=== PATIENT | female | born 1930 | race Caucasian/White ===

== ENCOUNTER 2016-11-09 09:02 | Inpatient (IN) | payer MEDICARE, OTHER ==
[2016-11-08 23:21] LABS: ASCORBIC ACID (UR NOT ORDER) 20 MG/DL (NEG); BILIRUBIN, URINE NEGATIVE (NEG); KETONE, URINE 5 MG/DL (NEG); LEUKOCYTE ESTERASE(NOT OR MOD (NEG); WBC (NOT ORDERED) (RFLEX) > 182 /[HPF] (0-5)
--- NOTE | ~2016-11-09 | HP ---
History And Physical [place] [id number] [place]. [address] NAME: ARACELIS PARIKH : 31 STATUS : ADM IN [facility]#: [id number] AGE: 85 ADM/REG DATE : 11/09/16 MR#: [id number] REPORT SERV DATE: 11/09/16 DICTATED BY: SONNY MCMANUS DATE: 11/09/16 REPORT STATUS : Draft TRANSCRIBED BY: MODL DATE: 11/09/16 DATE OF ADMISSION: 11/09/2016 IDENTIFYING DATA: An 85-year-old white female whose PCP is Dr. Zac Fan and urologist, Dr. Quezada. CHIEF COMPLAINT: Possible urinary tract infection. HISTORY OF PRESENT ILLNESS: This history of present illness is obtained by talking a little bit with the patient, but mostly with the son, Edgar, at the bedside as well as with the ER physician, Dr. Olsen, and reviewing [employer] and [employer]. This patient has paraplegia as is discussed in the past medical history below. As a complication of that, she ended up needing a suprapubic catheter and a colostomy to help with healing of stage IV decubitus she has had in the past. Unfortunately as part of her trouble with her suprapubic catheter, she has had many urinary tract infections, required inpatient hospitalization. Typically when these occur, she will become lethargic, confused, altered in her mental status, and sometimes hypotensive. Yesterday evening, she spiked a fever to 101, the caregiver called the son, Edgar. Home Health went out, they obtained a urine for culture and the son states they gave her a pill of Rocephin, but when I told him Rocephin is only a shot, he states it must have been some other antibiotic pill that the doctors had given them to give to her in case she had signs of infection. He does not know which one it was. Then, she had shaking chills, hallucinations, and lethargy. He states this is like her previous infections. Her baseline is where according to the son, she is alert, lucid, and clear thinking with good memory. REVIEW OF SYSTEMS: On review of systems, the patient is lethargic. She awakens to tactile stimulation. She states she has a mild cough and mild nausea. She had some complaint of abdominal pain, but could never show me where in her abdomen she felt pain. She was not sure if she had a headache. She denied sore throat, chest pain, or shortness of breath. She denied any bright red blood through the ostomy. They denied any melena, leg edema, rash, anorexia, or weight changes. ALLERGIES: NO KNOWN DRUG ALLERGIES. PAST MEDICAL HISTORY: No history of asthma, COPD, heart disease, stroke, seizure, peptic ulcer or biliary tract disease, liver disease, thyroid disease, cancer, or sleep apnea. In 2007, she reportedly was her usual self. She had nausea, vomiting, and suddenly was paralyzed from the mid spine down. Son states there was no trauma like car accident or anything else like this. 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 Apparently, surgery was done to try to restore her function, but she has been paraplegic ever since. She resulted in then neurogenic bladder, has had suprapubic catheter with many bladder infections, bladder stones, and renal stones, followed by Dr. Quezada. History And Physical [address] [address] NAME: ARACELIS PARIKH : 32 STATUS : ADM IN [facility]#: [id number] AGE: 85 ADM/REG DATE : 11/09/16 MR#: [id number] REPORT SERV DATE: 11/09/16 DICTATED BY: SONNY MCMANUS DATE: 11/09/16 REPORT STATUS : Draft TRANSCRIBED BY: FRANDY DATE: 11/09/16 She had the colostomy to help with wound healing. She at one point in time had a stage IV bedsore that the son states went all the way to her bone and her coccyx region and was the size of a fist. She has a history of diabetes mellitus type 2 and reflux. She also has a history of DVT. According to the son, it was only once as far as he knows. It is unclear why she still on anticoagulation this much later. She has an IVC filter in place. She has had kidney and bladder stones. HOME MEDICATIONS: Tylenol p.r.n.; vitamin C 500 mg daily; baclofen 10 mg t.i.d.; Tricor 48 mg daily; iron sulfate 325 mg twice a day; Levemir 40 units at bedtime; Humulin R sliding scale; magnesium oxide 400 mg daily; multivitamin once a day; omeprazole 20 mg daily; Zofran 4 mg q.8 hours p.r.n. nausea; Zocor 40 mg at bedtime; cranberry tablet once a day; Coumadin, she takes 2 mg on Saturday, Saturday, Saturday and 3 mg on Saturday, , Saturday, Saturday. PAST SURGICAL HISTORY: She has had hysterectomy, bilateral salpingo-oophorectomy, and bladder suprapubic catheter with replacement a few times according the son. She had the spine surgery in 2007. She has had a history of a left renal stone. She has had an IVC filter placed. SOCIAL HISTORY: No tobacco or alcohol intake history. 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 She lives at home now and has caregivers 04/03, they use a lift to get her to a wheelchair three or four times a week, and she can stay up in that wheelchair about two or three hours. FAMILY HISTORY: Her mother with old age. Father with brain cancer. Siblings, a brother with stroke and a sister with dementia. DIAGNOSTIC DATA: Chest x-ray done as a single portable film today in the emergency room reveals a shallow inspiratory size, which crowds all the lung markings. There was no clear cut infiltrate. No obvious bony abnormality. There is a slight deviation of the trachea to the right suggesting aortic knob calcification. EKG done today at 1007 hours and reviewed by me reveals normal sinus rhythm with some baseline motion artifact. There is Q-waves in III and aVF. No other abnormalities noted. Sodium 141, potassium 4, chloride 105, CO2 is 26, BUN 30, creatinine 1.09, glucose 216, and procalcitonin 8.35. The CMP is otherwise only remarkable for albumin of 3.1 and lactic acid is 2.0. White count is 12.4, hemoglobin is 10.4, and platelets are 193,000. Pro-time is 26.2, INR 2.4, and PTT is 50.7. Urinalysis done yesterday apparently by the home care nurse as a straight cath, turbid, protein 100, ketones 5, moderate leukocyte esterase, 38 red blood cells, greater than 182 white blood cells, many white blood cell clumps, and moderate bacteria. Today's urinalysis coming from her suprapubic catheter, turbid, protein 100, bilirubin small, urobilinogen 4, leukocyte esterase large, nitrite positive, greater than 182 red blood cells, greater than 182 white blood cells, many white blood cell clumps, and many bacteria. PHYSICAL EXAMINATION: VITAL SIGNS: Temp is 98; pulse 70; respirations 18; blood pressure initially 98/41, currently, it is up to 103/48; and O2 saturation 95% on room air. History And Physical [address] [address] NAME: ARACELIS PARIKH : 32 STATUS : ADM IN PAT#: [id number] AGE: 85 ADM/REG DATE : 11/09/16 MR#: [id number] REPORT SERV DATE: 11/09/16 DICTATED BY: SONNY MCMANUS DATE: 11/09/16 REPORT STATUS : Draft TRANSCRIBED BY: FRANDY DATE: 11/09/16 GENERAL: A well-developed older female who appears lethargic, but in no acute distress. HEENT: Head is atraumatic. Pupils are equal, round, and reactive to light. Extraocular motions are intact. No scleral icterus noted. Ear canals and TMs unremarkable. No inflammatory changes noted on the ears externally. Nose, noninflamed externally. Septum midline. Nares patent. Mouth is moist, good gag. No redness of the throat, gums, or lips. NECK: Supple. No lymph node or thyroid enlargement. The carotids have good pulses. No bruits. LUNGS: Clear. Good air flow. No wheezes. No rhonchi. Normal respiratory effort. HEART: Regular rate and rhythm without murmur, gallop, click, or rub. ABDOMEN: Bowel sounds positive. It is soft, except there is some firmness just to the left lateral side of the colostomy. There is a colostomy in the lower left midline. There is a suprapubic catheter that is a little bit left to midline. No mass. No rebound. No bruits. EXTREMITIES: Warm and good pulses. No clubbing. No cyanosis. No edema. She has plantar flexion of her feet bilaterally. She has superficial abrasion on the dorsum of the left foot, very small, maybe a centimeter across. No surrounding erythema. No other actively inflamed skin or joints. NEUROLOGIC: She is lethargic. She responds to tactile and verbal stimulation and opens her eyes, gives her name, is able to follow a few very simple commands, but without ongoing tactile stimulation, quickly falls back to a lethargic state. Motor strength is 1/5 in her hands. No movement of her legs noted. Cranial nerves II through XII are grossly normal. ASSESSMENT: 1. Fever at home 101, white count 12.4, lethargy with hallucinations, initial blood pressure 98/41, procalcitonin 8.35, pyuria, bacteria. This is all most consistent with recurrent severe complicated urinary tract infection with sepsis and an indwelling suprapubic catheter. 2. Acute kidney injury due to problem #1. 3. Metabolic encephalopathy. 4. Anemia of chronic disease. 5. History of renal and bladder stones in the past. 6. See past medical history. 7. Blood cultures and urine cultures have been sent. We are going to start Zosyn based on her previous sensitivities. We will give her some fluids with lactated Ringer's. We will do CT scan of the abdomen and pelvis without contrast to check for obstructive problems with the renal stones. Son, Edgar, at the bedside and I have discussed the case. He indicates that the patient by her own wishes is DO NOT RESUSCITATE, DO NOT INTUBATE, and no feeding tube, this is something that she has made clear to him and other family members in the past. RSG/MODL Sonny Mcmanus M.D. / [id number] History And Physical [address] [address] NAME: ARACELIS PARIKH : 32 STATUS : ADM IN [facility]#: [id number] AGE: 85 ADM/REG DATE : 11/09/16 MR#: [id number] REPORT SERV DATE: 11/09/16 DICTATED BY: SONNY MCMANUS DATE: 11/09/16 REPORT STATUS : Draft TRANSCRIBED BY: MODL DATE: 11/09/16 CC: MD Zac Wilson M.D. J. Patrick Dilworth, M.D.
--- NOTE | ~2016-11-09 | DS ---
Discharge Summary [facility] [address] [place]. [address] NAME: ARACELIS PARIKH : 32 STATUS : DIS IN PAT#: [id number] AGE: 85 ADM/REG DATE : 11/09/16 MR#: [id number] REPORT SERV DATE: 11/12/16 DICTATED BY: JONO LINDSEY DATE: 11/11/16 REPORT STATUS : Draft TRANSCRIBED BY: FRANDY DATE: 11/11/16 ADMISSION DATE: 11/09/2016 DISCHARGE DATE: 11/11/2016 DISCHARGE DIAGNOSES: 1. Coli bacteremia. 2. Coli catheter-associated urinary tract infection, at baseline, the patient has a suprapubic catheter. 3. Acute kidney injury. 4. Metabolic encephalopathy. 5. Anemia of chronic disease. 6. At baseline, the patient is debilitated with paraplegia since 2007. The patient is paralyzed waist down. CONSULTS: None. PROCEDURES: None. HOSPITAL COURSE: This is an 85-year-old lady with aforementioned paraplegia with suprapubic catheter, who presented to the ER with catheter-associated urinary tract infection. For details, please refer to H and P by Dr. Mcmanus. In summary, the patient was admitted and was initiated on broad-spectrum antibiotic as this was her recurrent episode. The patient has clearly responded to antibiotic therapy and by the second day, the patient was already showing much improvement. By the third day of the hospital stay, the patient's urine culture had come back positive for E. coli and the sensitivities were back. Also patient's blood cultures one out of two was positive for E. coli which is assumed to be the same organism as the urinary tract infection. The patient clinically was back at baseline and as the patient already has established help at home with home health and numerous family members, it was felt that the patient was appropriate for discharge home with close outpatient followup instructions. The patient is going home with amoxicillin to complete a two-week course based on culture sensitivities. Also to note the patient had acute kidney injury that resolved with IV fluid resuscitation. Metabolic encephalopathy and sepsis, all had resolved by the time of discharge. DISPOSITION: Home. DISCHARGE MEDICATIONS: No changes except for amoxicillin for 10 additional days. FOLLOWUP: Please follow up with PCP in the next one to two weeks. A total of 25 minutes spent in coordinating this patient's discharge today. GREGORY/FRANDY Discharge Summary [place] [address] [address] NAME: ARACELIS PARIKH : 32 STATUS : DIS IN PAT#: [id number] AGE: 85 ADM/REG DATE : 11/09/16 MR#: [id number] REPORT SERV DATE: 11/12/16 DICTATED BY: JONO LINDSEY DATE: 11/11/16 REPORT STATUS : Draft TRANSCRIBED BY: FRANDY DATE: 11/11/16 Jono Lindsey MD / [id number] CC: MD Zac Wilson M.D.
[~2016-11-09 09:02] MED LIST: ACET500CAP PO; ALPHAGAN P0.1 % OPH; AMPI500 PO; BACDS PO; BACLOFEN PO; C2 PO; C5 PO; CENTRUM PO; CLEAR EYE1 OPH; CORTOTSUSP OT; COUMADIN3 MG PO; CRANBERRY PO; CRANBERRY W/ VIT C PO; CRANBERRY1 TAB PO; DURICEF PO; FERROUS SULF325 M1 PO; GAS-X80 MG PO; HUMULIN R1 ML SC; INSNOVR SC; JANTOVEN3 MG PO; JANTOVEN4 MG PO; LEVEMFLXPN SC; LEVEMIR SC; LIOR10 PO; MAGNESIUM OXIDE PO; MAGNESIUM PO; MAGOX4 PO; MULTIVIT/MIN PO; MULTIVITAMI1 PO; NITROFURANTOIN PO; OMEPRAZOLE PO; PRILO PO; SIMVASTATIN PO; STOOL SOFTNER OTC PO; TRICOR PO; TRICOR48 PO; VITAMIN C PO; VITAMIN C100 M1 PO; VITC500 PO; ZOCOR40 PO; ZOFRAN4 PO; ZYRTEC ALLGY10 MG PO
[2016-11-09 10:51] LABS: BASOPHILS 0.1 %; BASOPHILS ABSOLUTE 0.01 10/3/uL (0.0-0.16); EOSINOPHILS 0.3 %; EOSINOPHILS ABSOLUTE 0.04 10/3/uL (0.0-0.53); HEMATOCRIT 33.4 % (36.0-48.0); HEMOGLOBIN 10.7 g/dL (12.0-16.0); IMMATURE GRANULOCYTES 0.2 %; IMMATURE GRANULOCYTES ABSOLUTE 0.03 10/3/uL (0.0-0.11); LYMPHOCYTES 9.6 %; LYMPHOCYTES ABSOLUTE 1.19 10/3/uL (0.67-4.30); MANUAL DIFF NO %; MEAN CORPUSCULAR VOLUME 87.4 fL (80-100); MEAN PLATELET VOLUME 9.3 fL (9.2-13.0); MONOCYTES 7.9 %; MONOCYTES ABSOLUTE 0.98 10/3/uL (0.21-1.20); NEUTROPHILS 81.9 %; PLATELET COUNT 193 10/3/uL (150-400); RBC DISTRIBUTION WIDTH 16.3 % (12.0-16.0); RED CELL COUNT 3.82 10/6/uL (4.0-5.6); WHITE BLOOD CELLS 12.4 10/3/uL (4.5-10.5)
[2016-11-09 10:54] LABS: ASCORBIC ACID (UR NOT ORDER) NEG (NEG); BILIRUBIN, URINE SMALL (NEG); ER URINALYSIS TAT 0 Hrs 23 Mins; KETONE, URINE NEGATIVE (NEG); LEUKOCYTE ESTERASE(NOT OR LARGE (NEG); NITRITE (URINE) POS (NEG); WBC (NOT ORDERED) (RFLEX) > 182 (0-5)
[2016-11-09 11:06] LABS: A/G RATIO 0.8 (0.7-1.9); ALBUMIN 3.1 G/DL (3.5-5.0); ALKALINE PHOSPHATASE 90 U/L (45-117); CALCIUM, SERUM 8.6 MG/DL (8.5-10.4); CHLORIDE, SERUM 105 MMOL/L (96-112); CO2 (CARBON DIOXIDE) 26 MMOL/L (24-34); CREATININE 1.09 MG/DL (0.55-1.02); GFR AFRICAN AMERICAN 54 ML/MIN (>=60); GFR NON AFRICAN AMERICAN 47 ML/MIN (>=60); GLOBULIN 3.7 G/DL (2.5-4.1); SGOT(AST) 18 U/L (5-40); SGPT(ALT) 30 U/L (5-65); SODIUM, SERUM 141 MMOL/L (135-148); TOTAL BILIRUBIN 1.2 MG/DL (0-1.2); TOTAL PROTEIN 6.8 G/DL (6.0-8.5)
[2016-11-09 11:07] LABS: BUN (BLOOD UREA NITROGEN) 30 MG/DL (6-23); GLUCOSE, SERUM 216 MG/DL (60-99)
[2016-11-09 11:12] LABS: INTERNATIONAL NORMAL RATI 2.4 UNITS (-)
[2016-11-09 11:13] LABS: PARTIAL THROMBO TIME 50.7 SEC (22.5-37.2)
[2016-11-09 11:16] LABS: PROTIME (NOT ORD) 26.2 SEC (12.0-14.5)
[2016-11-09 11:36] LABS: PROCALCITONIN 8.35 ng/mL (<0.5)
[2016-11-09] MEDS ORDERED: LIOR10 PO (12:28)
[2016-11-09] MEDS ORDERED: VITC500 PO (12:28)
[2016-11-09] MEDS ORDERED: TRICOR48 PO (12:31)
[2016-11-09] MEDS ORDERED: CRANBERRY W/ VIT C PO (12:31)
[2016-11-09] MEDS ORDERED: MAGOX4 PO (12:32)
[2016-11-09] MEDS ORDERED: HUMULIN R1 ML SC (12:32)
[2016-11-09] MEDS ORDERED: LEVEMIR SC (12:32)
[2016-11-09] MEDS ORDERED: FERROUS SULF325 M1 PO (12:32)
[2016-11-09] MEDS ORDERED: ZOCOR40 PO (12:33)
[2016-11-09] MEDS ORDERED: PRILO PO (12:33)
[2016-11-09] MEDS ORDERED: MULTIVITAMI1 PO (12:33)
[2016-11-09] MEDS ORDERED: C2 PO (12:34)
[2016-11-09] MEDS ORDERED: ACET500CAP PO (12:34)
[2016-11-09] MEDS ORDERED: COUMADIN3 MG PO (12:35)
[2016-11-09] MEDS ORDERED: ZOFRAN4 PO (12:35)
[2016-11-10 06:41] LABS: BUN (BLOOD UREA NITROGEN) 27 MG/DL (6-23); CALCIUM, SERUM 9.1 MG/DL (8.5-10.4); CHLORIDE, SERUM 108 MMOL/L (96-112); CO2 (CARBON DIOXIDE) 24 MMOL/L (24-34); CREATININE 0.73 MG/DL (0.55-1.02); GFR AFRICAN AMERICAN 88 ML/MIN (>=60); GFR NON AFRICAN AMERICAN 76 ML/MIN (>=60); GLUCOSE, SERUM 173 MG/DL (60-99); POTASSIUM, SERUM 4.2 MMOL/L (3.5-5.3); SODIUM, SERUM 142 MMOL/L (135-148)
[2016-11-10 06:42] LABS: INTERNATIONAL NORMAL RATI 2.4 UNITS (-)
[2016-11-10 07:46] LABS: BASOPHILS 0.2 %; BASOPHILS ABSOLUTE 0.02 10/3/uL (0.0-0.16); EOSINOPHILS 0.3 %; EOSINOPHILS ABSOLUTE 0.03 10/3/uL (0.0-0.53); HEMATOCRIT 31.8 % (36.0-48.0); HEMOGLOBIN 10.1 g/dL (12.0-16.0); IMMATURE GRANULOCYTES 0.3 %; IMMATURE GRANULOCYTES ABSOLUTE 0.03 10/3/uL (0.0-0.11); LYMPHOCYTES 12.8 %; LYMPHOCYTES ABSOLUTE 1.36 10/3/uL (0.67-4.30); MEAN CORPUS HGB CONC 31.8 g/dL (32.0-36.0); MEAN CORPUSCULAR HEMOGLOB 28.1 pg (26.0-34.0); MEAN CORPUSCULAR VOLUME 88.6 fL (80-100); MEAN PLATELET VOLUME 9.4 fL (9.2-13.0); MONOCYTES 7.8 %; MONOCYTES ABSOLUTE 0.83 10/3/uL (0.21-1.20); NEUTROPHILS 78.6 %; NEUTROPHILS ABSOLUTE 8.38 10/3/uL (2.02-8.40); PLATELET COUNT 189 10/3/uL (150-400); RED CELL COUNT 3.59 10/6/uL (4.0-5.6); WHITE BLOOD CELLS 10.7 10/3/uL (4.5-10.5)
[2016-11-10 07:55] LABS: MANUAL DIFF NO %
[2016-11-11 06:09] LABS: INTERNATIONAL NORMAL RATI 2.2 UNITS (-); PROTIME (NOT ORD) 24.2 SEC (12.0-14.5)
[2016-11-11 06:11] LABS: HEMATOCRIT 30.4 % (36.0-48.0); MEAN CORPUS HGB CONC 32.9 g/dL (32.0-36.0); MEAN CORPUSCULAR HEMOGLOB 28.8 pg (26.0-34.0); MEAN CORPUSCULAR VOLUME 87.6 fL (80-100); MEAN PLATELET VOLUME 9.8 fL (9.2-13.0); PLATELET COUNT 194 10/3/uL (150-400); RBC DISTRIBUTION WIDTH 16.1 % (12.0-16.0); RED CELL COUNT 3.47 10/6/uL (4.0-5.6)
[2016-11-11 06:18] LABS: MANUAL DIFF YES %; WHITE BLOOD CELLS 15.2 10/3/uL (4.5-10.5)
[2016-11-11 06:21] LABS: BUN (BLOOD UREA NITROGEN) 26 MG/DL (6-23); CALCIUM, SERUM 8.6 MG/DL (8.5-10.4); CHLORIDE, SERUM 105 MMOL/L (96-112); CO2 (CARBON DIOXIDE) 23 MMOL/L (24-34); CREATININE 1.18 MG/DL (0.55-1.02); GFR AFRICAN AMERICAN 49 ML/MIN (>=60); GFR NON AFRICAN AMERICAN 42 ML/MIN (>=60); POTASSIUM, SERUM 4.3 MMOL/L (3.5-5.3); SODIUM, SERUM 139 MMOL/L (135-148)
[2016-11-11 06:23] LABS: GLUCOSE, SERUM 253 MG/DL (60-99)
[2016-11-11 06:58] LABS: PROCALCITONIN 17.43 ng/mL (<0.5)
[2016-11-11 07:43] LABS: BAND NEUTROPHILS 8 %; EOSINOPHILS 1 %; EOSINOPHILS ABSOLUTE (CALC) 0.15 10/3/uL (0.0-0.53); LYMPHOCYTES 9 %; LYMPHOCYTES ABSOLUTE (CALC) 1.37 10/3/uL (0.67-4.30); MONOCYTES 5 %; MONOCYTES ABSOLUTE (CALC) 0.76 10/3/uL (0.21-1.20); NEUTROPHILS ABSOLUTE (CALC) 12.92 10/3/uL (2.02-8.40); SEGMENTED NEUTROPHIL (0) 77 %; TOTAL NUCLEATED CELLS 100; TOXIC GRANULATION 1+; VACUOLATED NEUTROPHILES OCC
[2016-11-11 07:44] LABS: PLATELET ESTIMATE ADQ (ADEQUATE); POLYCHROMASIA 1+ (2-5/OIF) (0-1/OIF)
[2016-11-11] MEDS ORDERED: AMOXIL875 PO (14:05)
[2016-11-11] MEDS ORDERED: FLORASTOR250 MG PO (14:05)
[2016-12-11] MEDS ORDERED: ZOFRAN4 PO (12:31)
== END 2016-11-11 16:03 | disposition home health service (06) | DRG 698 ==
LOC: ER 09:02 → 4SO 13:01
PROVIDERS: Emergency Medicine; Family Medicine Adult Medicine; Internal Medicine
DX: T83.510A Infection and inflammatory reaction due to cystostomy catheter, initial encounter (principal); G93.41 Metabolic encephalopathy; A41.51 Sepsis due to Escherichia coli [E. coli]; N17.9 Acute kidney failure, unspecified; N39.0 Urinary tract infection, site not specified; G82.20 Paraplegia, unspecified; E11.9 Type 2 diabetes mellitus without complications; B96.20 Unspecified Escherichia coli [E. coli] as the cause of diseases classified elsewhere; R65.20 Severe sepsis without septic shock; Y84.6 Urinary catheterization as the cause of abnormal reaction of the patient, or of later complication, without mention of misadventure at the time of the procedure; Q76.49 Other congenital malformations of spine, not associated with scoliosis; N31.9 Neuromuscular dysfunction of bladder, unspecified; Z93.3 Colostomy status; Z93.6 Other artificial openings of urinary tract status; K21.9 Gastro-esophageal reflux disease without esophagitis; Z86.718 Personal history of other venous thrombosis and embolism; Z79.01 Long term (current) use of anticoagulants; Z87.442 Personal history of urinary calculi; Z79.4 Long term (current) use of insulin; Z99.3 Dependence on wheelchair; D63.8 Anemia in other chronic diseases classified elsewhere; Z66 Do not resuscitate; Y92.009 Unspecified place in unspecified non-institutional (private) residence as the place of occurrence of the external cause
CPT/HCPCS: 71010; 74176; 80048; 80053; 81001; 82962; 83036; 83605; 84145; 85025; 85610; 85730; 87040; 87077; 87086; 87150; 87186; 93005; 99285; A9270-GY; J2543

== ENCOUNTER 2016-11-13 09:03 | Inpatient (IN) | payer MEDICARE, OTHER ==
--- NOTE | ~2016-11-13 | CN ---
Consultation Report [facility] [address] [place]. [address] NAME: ARACELIS ACOSTA : 32 STATUS : ADM IN PAT#: [id number] AGE: 85 ADM/REG DATE : 11/13/16 MR#: [id number] REPORT SERV DATE: 11/15/16 DICTATED BY: Danie ZULETA DATE: 11/15/16 REPORT STATUS : Draft TRANSCRIBED BY: MODL DATE: 11/15/16 CONSULTATION DATE OF CONSULTATION: 11/14/2016 CHIEF COMPLAINT: Right hydronephrosis with obstructing UPJ stone with bacteremia. HISTORY OF PRESENT ILLNESS: Ms. Acosta is an 85-year-old white female, known to me, but not seen in four or five years with a history of paraplegia and neurogenic bladder, this has been managed with a suprapubic tube. She also has recurrent stone disease and recurrent UTIs. The last time I saw her, she had a nonobstructing right renal pelvic stone and it was decided to watch that. She was not seen in followup. She has a history of multiple UTIs over several years and underwent recent hospitalization. She was readmitted due to the finding of ESBL E coli in one of two blood cultures on 11/09. Interestingly, the urine culture of her bladder urine also showed E coli, non-ESBL. Her creatinine is 0.54. White count is 5.6. She is afebrile. A CT shows a right renal pelvic stone that is 1.5 cm, now showing some hydronephrosis as well. This again is a longstanding stone, but the hydro is new. She is now on meropenem. She is conversant and close to her baseline. Her son is known to hi as well and says that while her quality of life with leisure nonambulatory, she is conversant and interactive with all that she sees. PAST MEDICAL HISTORY: 1. Glaucoma. 2. Cataracts. 3. Hypercholesterolemia. 4. Spine surgery with paraplegia. 5. GERD. 6. History of colostomy due to neurogenic bowel disease. 7. Neurogenic bladder, managed with suprapubic catheter. 8. Urolithiasis. 9. History of open stone surgery and cystolitholapaxy. 10.Insulin-dependent diabetes mellitus. 11.DVT. PAST SURGICAL HISTORY: 1. Hysterectomy with oophorectomy. 2. Stone extraction in 2013. 3. Colostomy in 2009. 4. Cystolitholapaxy in 01/2012. 5. Back surgery in 2009. 6. Placement of IVC filter. HOME MEDICATIONS: Acetaminophen, amoxicillin, artificial tears, baclofen, Alphagan, Zyrtec, TriCor, iron sulfate, Levemir, Humulin insulin, multivitamins, Prilosec, Zofran, Florastor, Consultation Report [address] [place]. [address] NAME: ARACELIS ACOSTA : 32 STATUS : ADM IN PAT#: [id number] AGE: 85 ADM/REG DATE : 11/13/16 MR#: [id number] REPORT SERV DATE: 11/15/16 DICTATED BY: Danie ZULETA DATE: 11/15/16 REPORT STATUS : Draft TRANSCRIBED BY: FRANDY DATE: 11/15/16 Zocor, cranberry supplements, Coumadin. ALLERGIES: NO KNOWN DRUG ALLERGIES. REVIEW OF SYSTEMS: A full 12-point review of systems is negative, except as noted above. FAMILY HISTORY: Positive for urolithiasis. SOCIAL HISTORY: The patient lives at home. PHYSICAL EXAMINATION: GENERAL: Pleasant, interactive 85-year-old white female. VITAL SIGNS: Afebrile with normal vital signs. HEENT: Normocephalic and atraumatic. LUNGS: No respiratory distress. HEART: Regular rate and rhythm. ABDOMEN: Protuberant, nontender, nondistended. No CVA tenderness elicited, but she has loss of sensation in her lower abdomen and lower extremities. She has a left-sided colostomy. EXTREMITIES: Although she is not ambulatory, no peripheral edema noted. PERTINENT LABORATORY DATA: Upon admission, creatinine 0.54. White count 6.8, hemoglobin 10.5. Urine, inflammatory, repeat culture pending. Cultures as noted above. IMPRESSION: 1. ESBL E coli bacteremia. 2. Large right renal pelvic stone with hydronephrosis. 3. Neurogenic bladder, managed with suprapubic tube. 4. Paraplegia. 5. Insulin-dependent diabetes mellitus. PLAN: I had a long discussion with the patient, who is really not interactive with discussion, and her son, who is familiar with her situation and with stone disease in general. I think if we are going to intervene and continue to try improvement that she needs her right kidney drained. I would prefer to do it from below, but her legs cannot be moved apart and we would likely have to go in through her suprapubic tract, which is also technically difficult. I think the most sober approach before going to proceed would be to place a right nephrostomy tube to see if she has pus there, which I am highly suspicious of, and drain that kidney and depending upon her clinical course, then she would ultimately be a candidate for a percutaneous stone extraction down the road. We should hold her Coumadin as they think about things and would like to plan to do it by the end of the week if she is clinically stable. Again, I have discussed this with the patient and with her family, and we will proceed as indicated. Consultation Report [facility] [address] [facility] [address] NAME: ARACELIS ACOSTA : 32 STATUS : ADM IN PAT#: [id number] AGE: 85 ADM/REG DATE : 11/13/16 MR#: [id number] REPORT SERV DATE: 11/15/16 DICTATED BY: Danie ZULETA DATE: 11/15/16 REPORT STATUS : Draft TRANSCRIBED BY: FRANDY DATE: 11/15/16 DAVIN/FRANDY Danie Zuleta M.D. / [id number] CC: Domingo Walter M.D.
--- NOTE | ~2016-11-13 | DS ---
Discharge Summary [address] [place]. [address] NAME: ARACELIS PARIKH : 32 STATUS : DIS IN [facility]#: [id number] AGE: 85 ADM/REG DATE : 11/13/16 MR#: [id number] REPORT SERV DATE: 11/20/16 DICTATED BY: MARILYN WALTER DATE: 11/19/16 REPORT STATUS : Draft TRANSCRIBED BY: MODL DATE: 11/19/16 ADMISSION DATE: 11/13/2016 DISCHARGE DATE: 11/19/2016 DISCHARGE DIAGNOSES: 1. Extended-spectrum beta-lactamases Escherichia coli bacteremia. 2. Escherichia coli urinary tract infection. 3. Large right renal pelvic stone with hydronephrosis. 4. Encephalopathy associated with hallucinations, present on admission, resolved. 5. Paraplegia with neurogenic bladder, managed with suprapubic tube. 6. Type 2 diabetes. 7. Chronic anemia. 8. History of deep venous thrombosis and inferior vena cava filter, on chronic Coumadin. 9. Hypertension. 10.Hyperlipidemia. 11.Possible diffuse idiopathic skeletal hyperostosis. 12.Glaucoma. OPERATIONS AND PROCEDURES: Anterograde pyelogram on the right with placement of right nephrostomy tube, 11/16/2016, Dr. Aguirre. PRESENT ILLNESS: This is an 85-year-old white female, who was in this hospital, 11/09/2016 to 11/11/2016, admitted by Dr. Mcmanus and discharged by Dr. Fletcher with diagnoses: 1. E coli bacteremia. 2. E coli catheter-associated urinary tract infection. 3. Acute kidney injury. 4. Metabolic encephalopathy. 5. Anemia of chronic disease. 6. Paraplegia. She improved clinically on antimicrobial therapy and was discharged home on p.o. amoxicillin. The day after discharge, the patient's blood cultures came back growing ESBL E coli different than her urine. Dr. Fletcher called the patient and her family and had them come back for readmission for continuation of antimicrobial therapy with ESBL E coli-specific antimicrobial therapy. ADDITIONAL HISTORY: Per Dr. Fletcher. PHYSICAL EXAMINATION: Per Dr. Fletcher. ADMISSION LABORATORY: Per Dr. Fletcher. She was admitted as described. Repeat cultures were obtained. She was started on IV Discharge Summary [address] [place]. [address] NAME: ARACELIS PARIKH VIJAY : 32 STATUS : DIS IN PAT#: [id number] AGE: 85 ADM/REG DATE : 11/13/16 MR#: [id number] REPORT SERV DATE: 11/20/16 DICTATED BY: MARILYN WALTER DATE: 11/19/16 REPORT STATUS : Draft TRANSCRIBED BY: FRANDY DATE: 11/19/[address] Fletcher requested Infectious Disease consultation. Her hospitalist care was assumed by the undersigned. Renal imaging was performed. A CT abdomen and pelvis showed a chronic inflammatory change in the right kidney with staghorn calculus and chronic hydronephrosis. Skeletal structure suggested ankylosing spondylitis versus DISH. Urology consultation was obtained. She was seen by Dr. Quezada who had seen her in the past. He felt that her right kidney needed to be drained, and given her paraplegia and inability to approach her urinary tract from a standard pelvic approach, Interventional Radiology consultation was obtained and the above-mentioned procedure was performed after her Coumadin was held and her INR had fallen to 1.4. There were no complications with this procedure. Surprisingly, urine from this culture grew less than 1000 colonies of yeast, gram-positive cocci, and diphtheroid-like organisms. Meropenem was continued throughout her hospitalization. Infectious Disease, Dr. Thrasher, recommended an additional 11 days of antimicrobial therapy as ertapenem. Dr. Quezada discussed performing a right PCNL in one to two weeks pending her overall clinical improvement. She developed a significant encephalopathy associated with hallucinations that was recognized shortly after admission. Her evaluation included a CT brain that did not show any acute abnormalities. Atrophy and chronic microvascular white matter ischemic changes were noted. Metabolically, a TSH was normal at 1.01 and a B12 at 419. An ammonia level was 14. Hepatic function profile was normal. A chest x-ray did not show any pulmonary infiltrate. She was empirically given thiamine in addition to her antimicrobial therapy for her ESBL E coli. There was slow but complete resolution of these symptoms, and by the time of discharge, she was cognitively back to normal. There were no other acute problems during her hospitalization. Her creatinine and electrolytes remained normal. Remarkably, her white blood cell count was normal on admission and remained normal. She had a slight drop in her hemoglobin to the upper 9's, which remained stable. She has had IV antimicrobial therapy at home with home health care in the past. She currently has home health care. Her son thought this could be managed again at home. Arrangements were made through continued care by Case Management for ertapenem 1 g daily for the next 11 days. A PICC line was placed. Today, back to her baseline state, it is felt she has achieved a level of improvement and stability where she can be safely discharged home. She has home health care with [facility] and physician visits by Dr. Farnsworth or his MANAGER TALENT. She will see Dr. Quezada Discharge Summary [address] [address] NAME: ARACELIS PARIKH : 32 STATUS : DIS IN PAT#: [id number] AGE: 85 ADM/REG DATE : 11/13/16 MR#: [id number] REPORT SERV DATE: 11/20/16 DICTATED BY: MARILYN WALTER DATE: 11/19/16 REPORT STATUS : Draft TRANSCRIBED BY: FRANDY DATE: 11/19/16 in one to two weeks. She will continue her home diet and activity. DISCHARGE MEDICATIONS: Baclofen 10 mg three times daily; TriCor 48 mg twice daily; iron sulfate 325 mg twice daily; Zyrtec 10 mg daily; magnesium oxide 400 mg daily; multivitamin daily; Prilosec 20 mg daily; Florastor twice daily; Zocor 40 mg daily; Coumadin 5 mg on Saturday and Saturday, then 2 mg Saturday, Saturday, Saturday, 3 mg Saturday, , Saturday, Saturday with PT/INR followups. She will continue her Alphagan eye drops. She was asked to reduce her Levemir from 44 units at bedtime to 20 units plus continuation of her before meals NovoLog scale. Before-meals and at-bedtime blood sugars the day prior to discharge 144, 197, 178, 175; fasting today 157 on reduced insulin doses. Discharge time greater than 30 minutes. DD/MODL Marilyn Walter M.D. / [id number] CC: Maggi Crouch MD Paul Cornea, M.D. J. Patrick Dilworth, M.D.
--- NOTE | ~2016-11-13 | HP ---
History And Physical [place] [id number] [facility]. [address] NAME: ARACELIS PARIKH : 31 STATUS : ADM IN [facility]#: [id number] AGE: 85 ADM/REG DATE : 11/13/16 MR#: [id number] REPORT SERV DATE: 11/13/16 DICTATED BY: JONO LINDSEY DATE: 11/13/16 REPORT STATUS : Draft TRANSCRIBED BY: MODL DATE: 11/13/16 DATE OF ADMISSION: 11/13/2016 CHIEF COMPLAINT: ESBL producing E coli bacteremia. HISTORY OF PRESENT ILLNESS: This is an 85-year-old lady who was just discharged from the hospital, now brought back because of a blood culture finding of ESBL producing E coli. The patient was admitted from 11/09/2016 to 11/11/2016 for a urinary tract infection. For details, please refer to H and P and discharge summaries that are already updated. In summary, the patient was admitted by Dr. Mcmanus for urinary tract infection and I assumed care on the next day. The patient was maintained on IV Zosyn for the first two days of the hospital stay. The patient showed a dramatic improvement of her overall clinically symptoms. For some reason, there were two urine cultures performed and both of the urine cultures had come back positive for an E coli with resistance to fluoroquinolone and Bactrim, but otherwise sensitive to penicillins and cephalosporins. The patient's IV antibiotic was switched to IV Rocephin and she was given a dose. The patient continued to do well and the patient was actually discharged home on p.o. amoxicillin. Of note, prior to discharge, the patient had 1/2 blood cultures turned positive for an E coli; however, based on the patient's overall clinical improvement, it was assumed that the E coli that was found in her blood culture probably had the same sensitivities as to urine cultures. The patient was discharged home on p.o. amoxicillin. At home, the patient has been doing well and continued to show clinical improvement. However, the day after discharge, the patient's blood cultures actually came back concerning for ESBL producing E coli. I called the patient and the family back and surprisingly the patient is continuing to do well at home. I asked the patient and family to return to the hospital; however, yesterday with suboptimal weather, the patient and the family were reluctant to return to the hospital especially when she was doing much better at home. They were agreeable to returning to the hospital this morning and thus EMS transport as well as room arrangement were made for this morning and they are now here. Seeing her in the room in 6118, the patient is looking much better. The patient's initial set of vitals were completely benign. The patient's mental status is back at baseline and the patient does not have any acute complaints. The patient's son who is the power of stamping die maker is also in the room and he reports that the patient has been doing fine at home and that he would not have suspected anything to be abnormal if he was not told so. The patient did not have any fevers or chills. The patient did not have any confusion or lethargy. The patient did not complain of any focal pain. Those are the symptoms that she usually develops whenever she develops a urinary tract infection. REVIEW OF SYSTEMS: Again, the patient did not have any fevers or chills. Also, 14-point review of systems reviewed and negative other than mentioned above. MEDICATIONS: 1. Vitamin C 500 mg p.o. daily. 2. Baclofen 10 mg p.o. three times daily. History And Physical [address] [address] NAME: ARACELIS PARIKH : 31 STATUS : ADM IN [facility]#: [id number] AGE: 85 ADM/REG DATE : 11/13/16 MR#: [id number] REPORT SERV DATE: 11/13/16 DICTATED BY: JONO LINDSEY DATE: 11/13/16 REPORT STATUS : Draft TRANSCRIBED BY: FRANDY DATE: 11/13/16 3. Cranberry tablets one tablet p.o. daily. 4. TriCor 48 mg p.o. b.i.d. 5. Insulin regular per sliding scale. 6. Ferrous sulfate 325 mg p.o. b.i.d. 7. Levemir 40 units subcu at bedtime. 8. Mag-Ox 400 mg p.o. daily. 9. Multivitamin one tab p.o. daily. 10.Prilosec 20 mg p.o. daily. 11.Zocor 40 mg p.o. at bedtime. 12.Coumadin 2 mg on Saturday, Saturday, and Saturday, and 3 mg on Saturday, , Saturday, and Sundays. 13.Zofran 4 mg p.o. q.8 hours p.r.n. 14.Amoxicillin 875 mg p.o. q.12 hours. 15.Florastor 250 mg p.o. with meals. ALLERGIES: NKDA. FOR PAST MEDICAL HISTORY, SURGICAL HISTORY, FAMILY HISTORY, AND SOCIAL HISTORY, PLEASE REFER TO EXCELLENT H AND P DICTATED BY DR. MCMANUS JUST A FEW DAYS AGO. THERE WERE NO CHANGES. PHYSICAL EXAMINATION: VITAL SIGNS: Temperature 96.8, blood pressure 145/63, pulse 82, respiratory rate is 18, saturating 98% on room air. NEUROLOGIC: The patient is alert and oriented x3. The patient has no additional focal neurologic deficits other than chronic paralysis of the lower extremities. GENERAL: The patient is awake, does not appear to be in acute distress, and she is cooperative. NECK: No JVD. No lymphadenopathy. Normal thyroid. CHEST: No midline sternotomy scar and no tenderness to palpation. LUNGS: Clear to auscultation bilaterally with normal respiratory effort on room air. CARDIOVASCULAR: Regular rate and rhythm with no murmurs, rubs, or gallops, and PMI is nondisplaced. ABDOMEN: Soft, nontender, with active bowel sounds, and no organomegaly. Colostomy is intact and the site is clean, dry, and without any signs of infection. EXTREMITIES: No edema. Normal distal pulses. 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 LABORATORY DATA: None yet. ASSESSMENT: This is an 85-year-old lady with history of suprapubic catheter and recurrent urinary tract infections, presenting with and ESBL bacteremia. 1. ESBL producing Escherichia coli bacteremia. 2. Escherichia coli, catheter associated urinary tract infection, baseline suprapubic catheter. 3. Paraplegia since 2007 status post suprapubic catheter as well as colostomy. 4. Insulin-dependent diabetes type 2. 5. 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 [address] NAME: ARACELIS PARIKH VIJAY : 31 STATUS : ADM IN [facility]#: [id number] AGE: 85 ADM/REG DATE : 11/13/16 MR#: [id number] REPORT SERV DATE: 11/13/16 DICTATED BY: ROSALIAJONO SEALEXA DATE: 11/13/16 REPORT STATUS : Draft TRANSCRIBED BY: MODL DATE: 11/13/16 anticoagulation with Coumadin. 6. Gastroesophageal reflux disease. 7. History of large decubitus ulcer. PLAN: The plan is to admit the patient under telemetry monitoring. I will go ahead and get her started on IV Invanz. I will also check labs to include CBC, repeat blood cultures, electrolytes, procalcitonin level, and urinalysis. I will request Infectious Disease consultation also. Otherwise, the patient has actually been doing well and she appears to be back at baseline, and thus for the rest of stable past medical conditions including diabetes, DVT, GERD, et al, I will continue home medications. Standard DVT prophylaxis. The patient is full code at this time. YSC/FRANDY Jono Lindsey MD / [id number] CC: Maggi Crouch M.D. J. Patrick Dilworth, M.D.
[~2016-11-13 09:03] MED LIST changes: +AMOXIL875 PO; +FLORASTOR250 MG PO
[2016-11-13 11:02] LABS: BASOPHILS 0.4 %; BASOPHILS ABSOLUTE 0.03 10/3/uL (0.0-0.16); EOSINOPHILS 2.1 %; EOSINOPHILS ABSOLUTE 0.14 10/3/uL (0.0-0.53); HEMATOCRIT 32.8 % (36.0-48.0); HEMOGLOBIN 10.5 g/dL (12.0-16.0); IMMATURE GRANULOCYTES 0.4 %; IMMATURE GRANULOCYTES ABSOLUTE 0.03 10/3/uL (0.0-0.11); LYMPHOCYTES 22.8 %; LYMPHOCYTES ABSOLUTE 1.54 10/3/uL (0.67-4.30); MANUAL DIFF NO %; MEAN CORPUSCULAR HEMOGLOB 28.2 pg (26.0-34.0); MEAN CORPUSCULAR VOLUME 87.9 fL (80-100); MEAN PLATELET VOLUME 9.2 fL (9.2-13.0); MONOCYTES 6.2 %; MONOCYTES ABSOLUTE 0.42 10/3/uL (0.21-1.20); NEUTROPHILS 68.1 %; NEUTROPHILS ABSOLUTE 4.59 10/3/uL (2.02-8.40); PLATELET COUNT 259 10/3/uL (150-400); RBC DISTRIBUTION WIDTH 15.8 % (12.0-16.0); RED CELL COUNT 3.73 10/6/uL (4.0-5.6); WHITE BLOOD CELLS 6.8 10/3/uL (4.5-10.5)
[2016-11-13 11:09] LABS: PROTIME (NOT ORD) 22.8 SEC (12.0-14.5)
[2016-11-13 11:12] LABS: CALCIUM, SERUM 9.1 MG/DL (8.5-10.4); CHLORIDE, SERUM 109 MMOL/L (96-112); CO2 (CARBON DIOXIDE) 27 MMOL/L (24-34); POTASSIUM, SERUM 3.7 MMOL/L (3.5-5.3); SODIUM, SERUM 144 MMOL/L (135-148)
[2016-11-13 11:13] LABS: BUN (BLOOD UREA NITROGEN) 17 MG/DL (6-23); CREATININE 0.54 MG/DL (0.55-1.02); GFR AFRICAN AMERICAN 100 ML/MIN (>=60); GFR NON AFRICAN AMERICAN 87 ML/MIN (>=60); GLUCOSE, SERUM 105 MG/DL (60-99)
[2016-11-13 11:38] LABS: PROCALCITONIN 6.61 ng/mL (<0.5)
[2016-11-13] MEDS ORDERED: ZYRTEC ALLGY10 MG PO (12:41)
[2016-11-13] MEDS ORDERED: REFRESH (12:43)
[2016-11-13] MEDS ORDERED: ALPHAGAN P0.1 % OPH (12:43)
[2016-11-13 16:32] LABS: ASCORBIC ACID (UR NOT ORDER) NEG (NEG); BILIRUBIN, URINE NEGATIVE (NEG); KETONE, URINE NEGATIVE (NEG); LEUKOCYTE ESTERASE(NOT OR LARGE (NEG); WBC (NOT ORDERED) (RFLEX) 118 (0-5)
[2016-11-14 04:25] LABS: BASOPHILS 0.4 %; BASOPHILS ABSOLUTE 0.02 10/3/uL (0.0-0.16); EOSINOPHILS 1.6 %; EOSINOPHILS ABSOLUTE 0.09 10/3/uL (0.0-0.53); HEMATOCRIT 31.2 % (36.0-48.0); IMMATURE GRANULOCYTES 1.1 %; IMMATURE GRANULOCYTES ABSOLUTE 0.06 10/3/uL (0.0-0.11); LYMPHOCYTES ABSOLUTE 1.97 10/3/uL (0.67-4.30); MEAN CORPUS HGB CONC 32.1 g/dL (32.0-36.0); MEAN CORPUSCULAR HEMOGLOB 28.2 pg (26.0-34.0); MEAN CORPUSCULAR VOLUME 87.9 fL (80-100); MEAN PLATELET VOLUME 9.4 fL (9.2-13.0); MONOCYTES 8.5 %; MONOCYTES ABSOLUTE 0.48 10/3/uL (0.21-1.20); NEUTROPHILS 53.4 %; NEUTROPHILS ABSOLUTE 3.01 10/3/uL (2.02-8.40); PLATELET COUNT 269 10/3/uL (150-400); RED CELL COUNT 3.55 10/6/uL (4.0-5.6); WHITE BLOOD CELLS 5.6 10/3/uL (4.5-10.5)
[2016-11-14 04:39] LABS: BUN (BLOOD UREA NITROGEN) 15 MG/DL (6-23); CHLORIDE, SERUM 111 MMOL/L (96-112); CO2 (CARBON DIOXIDE) 25 MMOL/L (24-34); CREATININE 0.54 MG/DL (0.55-1.02); GFR AFRICAN AMERICAN 100 ML/MIN (>=60); GFR NON AFRICAN AMERICAN 87 ML/MIN (>=60); SODIUM, SERUM 145 MMOL/L (135-148)
[2016-11-14 04:40] LABS: GLUCOSE, SERUM 198 MG/DL (60-99); MANUAL DIFF NO %
[2016-11-15 04:36] LABS: BASOPHILS 0.4 %; BASOPHILS ABSOLUTE 0.03 10/3/uL (0.0-0.16); EOSINOPHILS 1.7 %; EOSINOPHILS ABSOLUTE 0.13 10/3/uL (0.0-0.53); HEMATOCRIT 32.8 % (36.0-48.0); HEMOGLOBIN 10.5 g/dL (12.0-16.0); IMMATURE GRANULOCYTES 0.9 %; IMMATURE GRANULOCYTES ABSOLUTE 0.07 10/3/uL (0.0-0.11); LYMPHOCYTES ABSOLUTE 2.09 10/3/uL (0.67-4.30); MEAN CORPUSCULAR HEMOGLOB 27.8 pg (26.0-34.0); MEAN CORPUSCULAR VOLUME 86.8 fL (80-100); MEAN PLATELET VOLUME 9.4 fL (9.2-13.0); MONOCYTES 6.4 %; MONOCYTES ABSOLUTE 0.48 10/3/uL (0.21-1.20); NEUTROPHILS 62.6 %; NEUTROPHILS ABSOLUTE 4.67 10/3/uL (2.02-8.40); PLATELET COUNT 307 10/3/uL (150-400); RBC DISTRIBUTION WIDTH 15.6 % (12.0-16.0); RED CELL COUNT 3.78 10/6/uL (4.0-5.6); WHITE BLOOD CELLS 7.5 10/3/uL (4.5-10.5)
[2016-11-15 04:41] LABS: MANUAL DIFF NO %
[2016-11-15 04:50] LABS: BUN (BLOOD UREA NITROGEN) 16 MG/DL (6-23); CALCIUM, SERUM 9.4 MG/DL (8.5-10.4); CHLORIDE, SERUM 107 MMOL/L (96-112); CO2 (CARBON DIOXIDE) 24 MMOL/L (24-34); CREATININE 0.44 MG/DL (0.55-1.02); GFR AFRICAN AMERICAN 107 ML/MIN (>=60); GFR NON AFRICAN AMERICAN 93 ML/MIN (>=60); GLUCOSE, SERUM 192 MG/DL (60-99); POTASSIUM, SERUM 3.6 MMOL/L (3.5-5.3); SODIUM, SERUM 143 MMOL/L (135-148)
[2016-11-15 04:59] LABS: INTERNATIONAL NORMAL RATI 1.5 UNITS (-)
[2016-11-15 05:00] LABS: PROTIME (NOT ORD) 17.9 SEC (12.0-14.5)
[2016-11-15 11:44] LABS: ALBUMIN 2.9 G/DL (3.5-5.0); DIRECT BILIRUBIN 0.2 MG/DL (0.0-0.4); FREE T4 1.79 NG/DL (0.76-1.46)
[2016-11-15 11:47] LABS: INDIRECT BILIRUBIN(NOT ORDER) 0.3 MG/DL (0.1-0.9); TOTAL BILIRUBIN 0.5 MG/DL (0-1.2); ULTRASENSITIVE TSH 1.01 MCIU/ML (0.358-3.740)
[2016-11-15 12:56] LABS: PROCALCITONIN 1.75 ng/mL (<0.5)
[2016-11-16 07:08] LABS: BASOPHILS 0.4 %; BASOPHILS ABSOLUTE 0.03 10/3/uL (0.0-0.16); EOSINOPHILS 1.7 %; EOSINOPHILS ABSOLUTE 0.13 10/3/uL (0.0-0.53); HEMATOCRIT 31.9 % (36.0-48.0); HEMOGLOBIN 10.2 g/dL (12.0-16.0); IMMATURE GRANULOCYTES ABSOLUTE 0.08 10/3/uL (0.0-0.11); LYMPHOCYTES 26.7 %; LYMPHOCYTES ABSOLUTE 2.04 10/3/uL (0.67-4.30); MEAN CORPUSCULAR HEMOGLOB 28.3 pg (26.0-34.0); MEAN CORPUSCULAR VOLUME 88.4 fL (80-100); MEAN PLATELET VOLUME 9.2 fL (9.2-13.0); MONOCYTES 6.9 %; MONOCYTES ABSOLUTE 0.53 10/3/uL (0.21-1.20); NEUTROPHILS 63.3 %; NEUTROPHILS ABSOLUTE 4.82 10/3/uL (2.02-8.40); PLATELET COUNT 309 10/3/uL (150-400); RBC DISTRIBUTION WIDTH 15.6 % (12.0-16.0); RED CELL COUNT 3.61 10/6/uL (4.0-5.6); WHITE BLOOD CELLS 7.6 10/3/uL (4.5-10.5)
[2016-11-16 07:12] LABS: MANUAL DIFF NO %
[2016-11-16 07:13] LABS: INTERNATIONAL NORMAL RATI 1.4 UNITS (-); PROTIME (NOT ORD) 17.4 SEC (12.0-14.5)
[2016-11-16 07:19] LABS: BUN (BLOOD UREA NITROGEN) 19 MG/DL (6-23); CHLORIDE, SERUM 109 MMOL/L (96-112); CO2 (CARBON DIOXIDE) 23 MMOL/L (24-34); CREATININE 0.52 MG/DL (0.55-1.02); GFR AFRICAN AMERICAN 102 ML/MIN (>=60); GFR NON AFRICAN AMERICAN 88 ML/MIN (>=60); GLUCOSE, SERUM 168 MG/DL (60-99); POTASSIUM, SERUM 4.1 MMOL/L (3.5-5.3); SODIUM, SERUM 143 MMOL/L (135-148)
[2016-11-16 16:05] LABS: ASCORBIC ACID (UR NOT ORDER) NEG (NEG); BILIRUBIN, URINE NEGATIVE (NEG); KETONE, URINE NEGATIVE (NEG); LEUKOCYTE ESTERASE(NOT OR LARGE (NEG); WBC (NOT ORDERED) (RFLEX) 46 (0-5)
[2016-11-17 06:06] LABS: BASOPHILS 0.4 %; BASOPHILS ABSOLUTE 0.03 10/3/uL (0.0-0.16); EOSINOPHILS 1.7 %; EOSINOPHILS ABSOLUTE 0.13 10/3/uL (0.0-0.53); HEMATOCRIT 30.2 % (36.0-48.0); HEMOGLOBIN 9.5 g/dL (12.0-16.0); IMMATURE GRANULOCYTES ABSOLUTE 0.08 10/3/uL (0.0-0.11); INTERNATIONAL NORMAL RATI 1.5 UNITS (-); LYMPHOCYTES 29.2 %; LYMPHOCYTES ABSOLUTE 2.25 10/3/uL (0.67-4.30); MEAN CORPUS HGB CONC 31.5 g/dL (32.0-36.0); MEAN CORPUSCULAR HEMOGLOB 28.2 pg (26.0-34.0); MEAN CORPUSCULAR VOLUME 89.6 fL (80-100); MEAN PLATELET VOLUME 9.2 fL (9.2-13.0); MONOCYTES 6.4 %; MONOCYTES ABSOLUTE 0.49 10/3/uL (0.21-1.20); NEUTROPHILS 61.3 %; NEUTROPHILS ABSOLUTE 4.72 10/3/uL (2.02-8.40); PLATELET COUNT 298 10/3/uL (150-400); PROTIME (NOT ORD) 17.7 SEC (12.0-14.5); RED CELL COUNT 3.37 10/6/uL (4.0-5.6); WHITE BLOOD CELLS 7.7 10/3/uL (4.5-10.5)
[2016-11-17 06:09] LABS: MANUAL DIFF NO %
[2016-11-17 06:15] LABS: BUN (BLOOD UREA NITROGEN) 18 MG/DL (6-23); CALCIUM, SERUM 8.6 MG/DL (8.5-10.4); CHLORIDE, SERUM 111 MMOL/L (96-112); CO2 (CARBON DIOXIDE) 23 MMOL/L (24-34); CREATININE 0.43 MG/DL (0.55-1.02); GFR AFRICAN AMERICAN 108 ML/MIN (>=60); GFR NON AFRICAN AMERICAN 93 ML/MIN (>=60); SODIUM, SERUM 144 MMOL/L (135-148)
[2016-11-17 06:16] LABS: GLUCOSE, SERUM 123 MG/DL (60-99)
[2016-11-18 08:21] LABS: BASOPHILS 0.3 %; BASOPHILS ABSOLUTE 0.02 10/3/uL (0.0-0.16); EOSINOPHILS 2.7 %; EOSINOPHILS ABSOLUTE 0.18 10/3/uL (0.0-0.53); HEMATOCRIT 30.9 % (36.0-48.0); HEMOGLOBIN 9.7 g/dL (12.0-16.0); IMMATURE GRANULOCYTES 0.9 %; IMMATURE GRANULOCYTES ABSOLUTE 0.06 10/3/uL (0.0-0.11); LYMPHOCYTES 33.8 %; LYMPHOCYTES ABSOLUTE 2.29 10/3/uL (0.67-4.30); MEAN CORPUS HGB CONC 31.4 g/dL (32.0-36.0); MEAN CORPUSCULAR HEMOGLOB 27.9 pg (26.0-34.0); MEAN CORPUSCULAR VOLUME 88.8 fL (80-100); MEAN PLATELET VOLUME 9.3 fL (9.2-13.0); MONOCYTES 6.6 %; MONOCYTES ABSOLUTE 0.45 10/3/uL (0.21-1.20); NEUTROPHILS 55.7 %; NEUTROPHILS ABSOLUTE 3.77 10/3/uL (2.02-8.40); PLATELET COUNT 312 10/3/uL (150-400); RED CELL COUNT 3.48 10/6/uL (4.0-5.6); WHITE BLOOD CELLS 6.8 10/3/uL (4.5-10.5)
[2016-11-18 08:22] LABS: MANUAL DIFF NO %
[2016-11-18 08:27] LABS: INTERNATIONAL NORMAL RATI 1.5 UNITS (-); PROTIME (NOT ORD) 17.7 SEC (12.0-14.5)
[2016-11-19 06:20] LABS: BASOPHILS 0.4 %; BASOPHILS ABSOLUTE 0.03 10/3/uL (0.0-0.16); EOSINOPHILS ABSOLUTE 0.21 10/3/uL (0.0-0.53); HEMATOCRIT 31.1 % (36.0-48.0); HEMOGLOBIN 9.7 g/dL (12.0-16.0); IMMATURE GRANULOCYTES 0.7 %; IMMATURE GRANULOCYTES ABSOLUTE 0.05 10/3/uL (0.0-0.11); LYMPHOCYTES 31.2 %; LYMPHOCYTES ABSOLUTE 2.21 10/3/uL (0.67-4.30); MEAN CORPUS HGB CONC 31.2 g/dL (32.0-36.0); MEAN CORPUSCULAR HEMOGLOB 27.7 pg (26.0-34.0); MEAN CORPUSCULAR VOLUME 88.9 fL (80-100); MEAN PLATELET VOLUME 9.4 fL (9.2-13.0); MONOCYTES 6.6 %; MONOCYTES ABSOLUTE 0.47 10/3/uL (0.21-1.20); NEUTROPHILS 58.1 %; NEUTROPHILS ABSOLUTE 4.11 10/3/uL (2.02-8.40); PLATELET COUNT 319 10/3/uL (150-400); RBC DISTRIBUTION WIDTH 15.9 % (12.0-16.0); WHITE BLOOD CELLS 7.1 10/3/uL (4.5-10.5)
[2016-11-19 06:26] LABS: BUN (BLOOD UREA NITROGEN) 19 MG/DL (6-23); CALCIUM, SERUM 9.2 MG/DL (8.5-10.4); CHLORIDE, SERUM 107 MMOL/L (96-112); CO2 (CARBON DIOXIDE) 26 MMOL/L (24-34); CREATININE 0.48 MG/DL (0.55-1.02); GFR AFRICAN AMERICAN 104 ML/MIN (>=60); GFR NON AFRICAN AMERICAN 90 ML/MIN (>=60); POTASSIUM, SERUM 4.3 MMOL/L (3.5-5.3); SODIUM, SERUM 142 MMOL/L (135-148)
[2016-11-19 06:27] LABS: GLUCOSE, SERUM 180 MG/DL (60-99); MANUAL DIFF NO %
[2016-11-19 06:42] LABS: INTERNATIONAL NORMAL RATI 1.4 UNITS (-); PROTIME (NOT ORD) 16.9 SEC (12.0-14.5)
[2016-11-19] MEDS ORDERED: INVANZ1 G1 IV (16:01)
[2016-12-11] MEDS ORDERED: ZOFRAN4 PO (12:31)
== END 2016-11-19 18:14 | disposition home health service (06) | DRG 698 ==
LOC: 6NO 09:03
PROVIDERS: Internal Medicine
PROC: 0T9030Z Drainage of Right Kidney with Drainage Device, Percutaneous Approach (ICD-10-PCS; 2016-11-16)
PROC: BT1D1ZZ Fluoroscopy of Right Kidney, Ureter and Bladder using Low Osmolar Contrast (ICD-10-PCS; 2016-11-16)
PROC: 02HV33Z Insertion of Infusion Device into Superior Vena Cava, Percutaneous Approach (ICD-10-PCS; principal; 2016-11-19)
PROC: 4A02X4A Measurement of Cardiac Electrical Activity, Guidance, External Approach (ICD-10-PCS; 2016-11-19)
DX: T83.510A Infection and inflammatory reaction due to cystostomy catheter, initial encounter (principal); G93.41 Metabolic encephalopathy; G82.20 Paraplegia, unspecified; N31.9 Neuromuscular dysfunction of bladder, unspecified; N39.0 Urinary tract infection, site not specified; B96.20 Unspecified Escherichia coli [E. coli] as the cause of diseases classified elsewhere; N13.6 Pyonephrosis; D64.9 Anemia, unspecified; E11.9 Type 2 diabetes mellitus without complications; H40.9 Unspecified glaucoma; K21.9 Gastro-esophageal reflux disease without esophagitis; Z79.4 Long term (current) use of insulin; Z16.12 Extended spectrum beta lactamase (ESBL) resistance; Z87.442 Personal history of urinary calculi; Z87.440 Personal history of urinary (tract) infections; Z93.3 Colostomy status; Z86.718 Personal history of other venous thrombosis and embolism; Z90.710 Acquired absence of both cervix and uterus
CPT/HCPCS: 36569; 50432; 70450; 80048; 80076; 81001; 82140; 82607; 82962; 83735; 84145; 84439; 84443; 85025; 85610; 87040; 87086; A9270-GY; C1729; C1751; C1769; C1894; J1335; J2185; J2710; J3010; J3411; Q9967

== ENCOUNTER 2016-11-26 06:49 | Observation (INO) | payer MEDICARE, OTHER ==
--- NOTE | ~2016-11-26 | OP ---
Record Of Operation [facility] [address] [place]. [address] NAME: ARACELIS ACOSTA : 31 STATUS : ADM IN PAT#: [id number] AGE: 85 ADM/REG DATE : 11/26/16 MR#: [id number] REPORT SERV DATE: 11/26/16 DICTATED BY: Danie ZULETA DATE: 11/26/16 REPORT STATUS : Draft TRANSCRIBED BY: MODL DATE: 11/26/16 DATE OF PROCEDURE: 11/26/2016 PREOPERATIVE DIAGNOSIS: Right renal pelvic stone, greater than 2 cm. POSTOPERATIVE DIAGNOSIS: Right renal pelvic stone, greater than 2 cm. PROCEDURE: Right percutaneous nephrolithotomy. SURGEON: Danie Zuleta M.D. ANESTHESIA: General endotracheal. COMPLICATIONS: None. DRAINS: A 10-Citizen [place] right nephroureterostomy stent. BRIEF HISTORY: Ms. Acosta is an 85-year-old white female with a history of recurrent UTIs and stone disease. She had a recent ESBL E coli bacteremia and an obstructing right UPJ stone. She had a nephrostomy tube placed. She has been on sensitivity-directed antibiotics and is here for stone removal. The risks of bleeding, infection, anesthesia, injury to adjacent organs, inability to remove all stone, need for subsequent tube removal, etc., were all discussed. There were no unanswered questions. She has been off her Coumadin for four days. DESCRIPTION OF PROCEDURE: Under excellent general anesthesia, the patient was prepped and draped in standard prone position. Dr. Aguirre was the radiologist who came into the room and accessed the ureter. He placed two safety wires and then we dilated the tract up to the level of the stone. I then used the offset lens nephroscope and encountered a segment of friable stone just above the large renal pelvic stone. In aggregate, the total size was about 2.3 cm. These stones were like I said extremely friable, but I removed the small fragment and then a large stone as well. The main difficulty was that fragments were attracted to the UPJ and I had to fish several fragments out the UPJ. Ultimately underwent enough trauma that I thought that a new stent was necessary. I had to back the sheath out to get all of the stone, but I think that all of the lower pole stone and the renal pelvic stone were removed. I attempted to access the proximal collecting system with the cystoscope, but I was unable to access that calyx due to problems with visualization. Again, I think I removed probably 98% of her stone. I was satisfied with that and my plan had been not to leave, so I asked Dr. Aguirre to return to the room and we placed a 10- Citizen [place] NU stent into the bladder and into the renal pelvis. This was tied to the skin and a sterile dressing was applied. I opted not to leave a nephrostomy tube in this scenario. I plan to leave the tube open to drainage and plug it in the morning and let her go home. I think the tube should be in about two weeks and then it can be removed by Radiology. Otherwise, everything went as planned. Record Of Operation [address] [place]. [address] NAME: ARACELIS ACOSTA : 32 STATUS : ADM IN PAT#: [id number] AGE: 85 ADM/REG DATE : 11/26/16 MR#: [id number] REPORT SERV DATE: 11/26/16 DICTATED BY: Danie ZULETA DATE: 11/26/16 REPORT STATUS : Draft TRANSCRIBED BY: FRANDY DATE: 11/26/16 DAVIN/FRANDY Danie Zuleta M.D. / [id number] CC: Danie Zuleta M.D.
--- NOTE | ~2016-11-26 | HP ---
History And Physical [address] [place]. [address] NAME: ARACELIS ACOSTA : 31 STATUS : ADM IN [facility]#: [id number] AGE: 85 ADM/REG DATE : 11/26/16 MR#: [id number] REPORT SERV DATE: 11/26/16 DICTATED BY: Danie QUEZADA DATE: 11/26/16 REPORT STATUS : Draft TRANSCRIBED BY: MODFredy DATE: 11/26/16 DATE OF ADMISSION: 11/26/2016 CHIEF COMPLAINT: Right renal pelvic stone. HISTORY OF PRESENT ILLNESS: Ms Acosta is an 85-year-old white female known to me, seen recently in the hospital for urosepsis. She has a history of paraplegia and neurogenic bladder managed with a suprapubic tube. She also has recurrent stone disease and recurrent UTIs. At that time, I saw a previously nonobstructing stone, which had moved into her renal pelvis. She had ESBL E. coli and one out of two blood cultures on 11/09/2016 and culture in her bladder urine showed non-ESBL E. coli. She was otherwise asymptomatic, being treated with meropenem, but we placed a nephrostomy tube, and she is here for a percutaneous stone removal. PAST MEDICAL HISTORY: 1. Glaucoma. 2. Cataracts. 3. Hypercholesterolemia. 4. Urolithiasis. 5. Spine surgery with resultant paraplegia. 6. GERD. 7. Neurogenic bladder. 8. Colostomy. 9. Insulin-dependent diabetes mellitus. 10.DVT. PAST SURGICAL HISTORY: 1. Open stone surgery with cystolitholapaxy. 2. Hysterectomy. 3. Stone extraction. 4. Colostomy. 5. Cystolitholapaxy. 6. Back surgery. 7. Placement of IVC filter. HOME MEDICATIONS: Acetaminophen, artificial tears, baclofen, Alphagan, cetirizine, ertapenem, fenofibrate, iron sulfate, insulin, magnesium oxide, multivitamins, omeprazole, ondansetron, saccharomyces boulardii, simvastatin, cranberry, Coumadin. ALLERGIES: NO KNOWN DRUG ALLERGIES. PHYSICAL EXAMINATION: GENERAL: Pleasant, interactive 85-year-old white female. VITAL SIGNS: Afebrile with normal vital signs. HEENT: Normocephalic, atraumatic. LUNGS: No respiratory distress. History And Physical [address] [place]. [address] NAME: ARACELIS ACOSTA : 31 STATUS : ADM IN [facility]#: [id number] AGE: 85 ADM/REG DATE : 11/26/16 MR#: [id number] REPORT SERV DATE: 11/26/16 DICTATED BY: Danie QUEZADA DATE: 11/26/16 REPORT STATUS : Draft TRANSCRIBED BY: FRANDY DATE: 11/26/16 HEART: Regular rate and rhythm. ABDOMEN: Protuberant, nontender, nondistended. She has a right nephrostomy tube. EXTREMITIES: Show no peripheral edema. She is nonambulatory. IMPRESSION: 1. Recent extended-spectrum beta-lactamases Escherichia coli bacteremia. 2. Right renal pelvic stone with hydronephrosis, status post nephrostomy tube. 3. Neurogenic bladder, managed with suprapubic tube. 4. Paraplegia. PLAN: We will plan a right percutaneous nephrolithotomy today. Followup will depend upon our success and tube placement should be at least observed overnight. Further evaluation will depend upon her clinical course. DAVIN/FRANDY Danie Quezada M.D. / [id number] CC: Danie Quezada M.D.
--- NOTE | ~2016-11-26 | DS ---
Discharge Summary [facility] [address] [place]. [address] NAME: ARACELIS ACOSTA : 32 STATUS : DIS Jad PAT#: [id number] AGE: 85 ADM/REG DATE : 11/26/16 MR#: [id number] REPORT SERV DATE: 11/28/16 DICTATED BY: Danie ZULETA DATE: 11/27/16 REPORT STATUS : Draft TRANSCRIBED BY: FRANDY DATE: 11/27/16 ADMISSION DATE: 11/26/2016 DISCHARGE DATE: 11/27/2016 ADMISSION DIAGNOSIS: Right renal pelvic calculi with recurrent urinary tract infections. DISCHARGE DIAGNOSIS: Right renal pelvic calculi with recurrent urinary tract infections. PROCEDURES DURING ADMISSION: 11/26/2016, right percutaneous nephrolithotomy. BRIEF HISTORY: Ms. Acosta is an 85-year-old white female with a history of recurrent UTIs and stone disease. She had recent ESBL E. coli bacteremia and obstructing right UPJ stone. She had a nephrostomy tube placed. She has been on outpatient sensitivity directed antibiotics and was scheduled for the above procedure. Risks and benefits were discussed with the patient and her son. HOSPITAL COURSE TREATMENT: On 11/26/2016, the patient was taken the OR, and an uneventful percutaneous nephrolithotomy was performed. Due to a reaction and trauma in the area of the renal pelvis, it was felt that she got to have some drainage for several weeks and because of inability to access her lower urinary tract with ease, we decided to place a nephroureterostomy tube postoperatively. The patient did well overnight. She had some bloody urine but I had good drainage of her urine, gradually cleared, and her nephrostomy tube was clamped on the morning of 11/27/2016. It was planned to watch her and if she had reasonable drainage to discharge her with the following instructions. DISCHARGE INSTRUCTIONS: 1. Home today to the shelter. 2. We will schedule an outpatient antegrade nephrostogram with possible percutaneous nephrostomy tube removal in 2 to 2-1/2 weeks. I do not feel the need to see her unless she has a problem because transport requires an ambulance and she is doing well, I see no need to be involved. DAVIN/FRANDY Danie Zuleta M.D. / [id number] CC: Maggi Chambers M.D.
[~2016-11-26 06:49] MED LIST changes: +INVANZ1 G1 IV; +REFRESH
[2016-11-26 07:35] LABS: INTERNATIONAL NORMAL RATI 1.5 UNITS (-); PROTIME (NOT ORD) 17.6 SEC (12.0-14.5)
[2016-11-27 07:03] LABS: BASOPHILS 0.5 %; BASOPHILS ABSOLUTE 0.04 10/3/uL (0.0-0.16); EOSINOPHILS 1.5 %; EOSINOPHILS ABSOLUTE 0.13 10/3/uL (0.0-0.53); HEMOGLOBIN 8.6 g/dL (12.0-16.0); IMMATURE GRANULOCYTES 0.5 %; IMMATURE GRANULOCYTES ABSOLUTE 0.04 10/3/uL (0.0-0.11); LYMPHOCYTES ABSOLUTE 1.73 10/3/uL (0.67-4.30); MEAN CORPUS HGB CONC 31.5 g/dL (32.0-36.0); MEAN CORPUSCULAR VOLUME 88.9 fL (80-100); MEAN PLATELET VOLUME 9.9 fL (9.2-13.0); MONOCYTES ABSOLUTE 0.78 10/3/uL (0.21-1.20); NEUTROPHILS 68.5 %; NEUTROPHILS ABSOLUTE 5.94 10/3/uL (2.02-8.40); PLATELET COUNT 236 10/3/uL (150-400); RBC DISTRIBUTION WIDTH 15.9 % (12.0-16.0); RED CELL COUNT 3.07 10/6/uL (4.0-5.6); WHITE BLOOD CELLS 8.7 10/3/uL (4.5-10.5)
[2016-11-27 07:06] LABS: HEMATOCRIT 27.3 % (36.0-48.0); MANUAL DIFF NO %
[2016-11-27 07:08] LABS: BUN (BLOOD UREA NITROGEN) 17 MG/DL (6-23); CALCIUM, SERUM 8.5 MG/DL (8.5-10.4); CHLORIDE, SERUM 110 MMOL/L (96-112); CO2 (CARBON DIOXIDE) 25 MMOL/L (24-34); GFR AFRICAN AMERICAN 103 ML/MIN (>=60); GFR NON AFRICAN AMERICAN 89 ML/MIN (>=60); POTASSIUM, SERUM 4.6 MMOL/L (3.5-5.3); SODIUM, SERUM 145 MMOL/L (135-148)
[2016-11-27 07:11] LABS: GLUCOSE, SERUM 140 MG/DL (60-99)
[2016-11-29 23:20] LABS: SOURCE OF STONE Right Kidney (()); STONE COMPOSITION TWO DNR (())
[2016-12-11] MEDS ORDERED: ZOFRAN4 PO (12:31)
== END 2016-11-27 13:05 | disposition home or self-care (01) ==
LOC: SDC/OF 06:49 → PACU 11:47 → 4SO 15:08
PROC: 0TC03ZZ Extirpation of Matter from Right Kidney, Percutaneous Approach (ICD-10-PCS; principal; 2016-11-26 09:00)
DX: N20.0 Calculus of kidney (principal); E78.00 Pure hypercholesterolemia, unspecified; K21.9 Gastro-esophageal reflux disease without esophagitis; E11.9 Type 2 diabetes mellitus without complications; N39.0 Urinary tract infection, site not specified; B96.20 Unspecified Escherichia coli [E. coli] as the cause of diseases classified elsewhere; Z79.4 Long term (current) use of insulin; Z86.718 Personal history of other venous thrombosis and embolism; Z93.3 Colostomy status; Z90.710 Acquired absence of both cervix and uterus; Z98.890 Other specified postprocedural states
CPT/HCPCS: 36415; 80048; 82365; 82962; 85025; 85610; 86850; 86900; 86901; 96374; 96375; 96376; A9270-GY; C1726; C1769; C2625; G0378; J0690; J1335; J2270; J2370; J2405; J2710; J3010; Q9967

== ENCOUNTER 2017-01-09 12:12 | Emergency (ER) | payer MEDICARE, OTHER ==
[2017-01-09 12:38] LABS: ASCORBIC ACID (UR NOT ORDER) NEG (NEG); BILIRUBIN, URINE NEGATIVE (NEG); KETONE, URINE NEGATIVE (NEG); LEUKOCYTE ESTERASE(NOT OR LARGE (NEG); NITRITE (URINE) NEG (NEG); WBC (NOT ORDERED) (RFLEX) > 182 (0-5)
[2017-01-09 13:23] LABS: BASOPHILS 0.3 %; BASOPHILS ABSOLUTE 0.02 10/3/uL (0.0-0.16); EOSINOPHILS 2.7 %; EOSINOPHILS ABSOLUTE 0.17 10/3/uL (0.0-0.53); HEMOGLOBIN 9.4 g/dL (12.0-16.0); IMMATURE GRANULOCYTES 0.3 %; IMMATURE GRANULOCYTES ABSOLUTE 0.02 10/3/uL (0.0-0.11); LYMPHOCYTES 29.2 %; LYMPHOCYTES ABSOLUTE 1.84 10/3/uL (0.67-4.30); MEAN CORPUS HGB CONC 31.1 g/dL (32.0-36.0); MEAN CORPUSCULAR HEMOGLOB 27.3 pg (26.0-34.0); MEAN CORPUSCULAR VOLUME 87.8 fL (80-100); MEAN PLATELET VOLUME 9.1 fL (9.2-13.0); MONOCYTES 6.7 %; MONOCYTES ABSOLUTE 0.42 10/3/uL (0.21-1.20); NEUTROPHILS 60.8 %; NEUTROPHILS ABSOLUTE 3.84 10/3/uL (2.02-8.40); RED CELL COUNT 3.44 10/6/uL (4.0-5.6); WHITE BLOOD CELLS 6.3 10/3/uL (4.5-10.5)
[2017-01-09 13:25] LABS: HEMATOCRIT 30.2 % (36.0-48.0); MANUAL DIFF NO %; PLATELET COUNT 314 10/3/uL (150-400)
[2017-01-09 13:40] LABS: A/G RATIO 0.6 (0.7-1.9); ALBUMIN 2.6 G/DL (3.5-5.0); ALKALINE PHOSPHATASE 80 U/L (45-117); BUN (BLOOD UREA NITROGEN) 17 MG/DL (6-23); CALCIUM, SERUM 8.8 MG/DL (8.5-10.4); CHLORIDE, SERUM 112 MMOL/L (96-112); CO2 (CARBON DIOXIDE) 28 MMOL/L (24-34); CREATININE 0.58 MG/DL (0.55-1.02); GFR AFRICAN AMERICAN 97 ML/MIN (>=60); GFR NON AFRICAN AMERICAN 84 ML/MIN (>=60); GLOBULIN 4.2 G/DL (2.5-4.1); GLUCOSE, SERUM 170 MG/DL (60-99); POTASSIUM, SERUM 4.5 MMOL/L (3.5-5.3); SGOT(AST) 17 U/L (5-40); SGPT(ALT) 16 U/L (5-65); SODIUM, SERUM 145 MMOL/L (135-148); TOTAL BILIRUBIN 0.4 MG/DL (0-1.2); TOTAL PROTEIN 6.8 G/DL (6.0-8.5)
== END 2017-01-09 17:12 | disposition home or self-care (01) ==
LOC: ER 12:12
PROVIDERS: Hospitalist
DX: R82.99 Other abnormal findings in urine (principal); R82.5 Elevated urine levels of drugs, medicaments and biological substances; K21.9 Gastro-esophageal reflux disease without esophagitis; E11.9 Type 2 diabetes mellitus without complications; Z79.4 Long term (current) use of insulin; Z79.01 Long term (current) use of anticoagulants; Z79.899 Other long term (current) drug therapy
CPT/HCPCS: 80053; 81001; 85025; 87040; 87077; 87086; 87186; 99284

== ENCOUNTER 2017-01-15 01:46 | Inpatient (IN) | payer MEDICARE, OTHER ==
--- NOTE | ~2017-01-15 | OP ---
Record Of Operation [facility] [address] [place]. [address] NAME: ARACELIS ACOSTA : 32 STATUS : ADM IN [facility]#: [id number] AGE: 86 ADM/REG DATE : 01/15/17 MR#: [id number] REPORT SERV DATE: 01/17/17 DICTATED BY: CARLOS GARCIAS DATE: 01/17/17 REPORT STATUS : Draft TRANSCRIBED BY: MODFredy DATE: 01/17/17 DATE OF PROCEDURE: 01/17/2017 ASSISTANTS: Paulo Hays. POSTOPERATIVE DIAGNOSES: 1. Large circumferential pericardial effusion. 2. Bilateral pleural effusions. POSTOPERATIVE DIAGNOSES: 1. Large circumferential pericardial effusion. 2. Bilateral pleural effusions. OPERATION/PROCEDURE PERFORMED: 1. Left video-assisted thoracic surgery. 2. Drainage of left pleural effusion. 3. Pericardial window. 4. Drainage of pericardial effusion. COMPLICATIONS: None. DRAINS: A 28 straight chest tube to the left chest. ESTIMATED BLOOD LOSS: Minimal. SPECIMENS REMOVED: 910 mL of straw-colored pleural fluid, approximately 140 mL of sanguinous pericardial fluid, and then a quarter-size piece of pericardium was removed. INDICATIONS FOR PROCEDURE: Ms. Acosta is 86-year-old female, who was anticoagulated for chronic DVTs, who presents with failure to thrive, shortness of breath, and was found to have a large circumferential pericardial effusion with bilateral pleural effusions. She is a paraplegic with chronic contractures, and it was felt that she would benefit from drainage of the pericardial effusion with biopsy as well as drainage of her left pleural effusion. Risks, benefits, and alternatives were discussed with the patient including, but not limited to, bleeding, infection, stroke, , heart attack, and need for future operations. All questions were answered. DETAILS OF PROCEDURE: The patient was brought to the operating room and placed on the operating room table. After satisfactory induction of general endotracheal anesthesia via double-lumen ET tube, she was log rolled in the right lateral decubitus position. She was prepped and draped in the usual sterile fashion. All pressure points were padded. Axillary roll had been placed. She was prepped and draped in usual sterile fashion. A 3 cm incision was made in the skin fold in the mid axillary line approximately at the 7th intercostal space. Skin and subcutaneous tissues were divided. The chest wall muscles were divided down to the intercostals. The intercostals were divided in direction of its fibers. The chest was entered and 910 mL of straw-colored pleural fluid were removed and a wound Record Of Operation [address] [place]. [address] NAME: ARACELIS ACOSTA : 32 STATUS : ADM IN PAT#: [id number] AGE: 86 ADM/REG DATE : 01/15/17 MR#: [id number] REPORT SERV DATE: 01/17/17 DICTATED BY: CARLOS GARCIAS DATE: 01/17/17 REPORT STATUS : Draft TRANSCRIBED BY: FRANDY DATE: 01/17/17 retractor was then placed and the scope was introduced. The pericardium was tense and angry appearing. The diaphragm was retracted out of the way using the pool-tip sucker and the electrocautery was used to open the pericardium. There was an approximately 140 to 150 mL of pericardial fluid were evacuated with more spilling into pleura. A quarter-size piece of pericardium was excised and the procedure was terminated. There did appear to be some fibrinous material in the pericardium. I did not aggressively try to remove this. I removed what little bit could be seen through the window. A 28-Filipino chest tube was placed to the apex and anchored into position. A few extra holes were placed in the chest tube. The lung was reinflated and the chest was closed. Prior to closure, a TAP block was used to provide intercostal blocks. The patient tolerated the procedure well. The chest was closed with 0 Vicryl, 2-0 Vicryl, and 3-0 Monocryl. Dry sterile dressings were placed. She was transferred to the CVICU in critical, stable condition. [facility]/FRANDY Carlos Garcias MD / [id number] CC: MD Lowell Edwards MD Eun Kyung Lee, M.D. Vimal Ramjee, MD
--- NOTE | ~2017-01-15 | IDS ---
Interim Discharge Summary [facility] [address] [place]. [address] NAME: ARACELIS PARIKH : 32 STATUS : ADM IN [facility]#: [id number] AGE: 86 ADM/REG DATE : 01/15/17 MR#: [id number] REPORT SERV DATE: 01/19/17 DICTATED BY: SHELBY HOYOS IV DATE: 01/19/17 REPORT STATUS : Draft TRANSCRIBED BY: FRANDY DATE: 01/19/17 ADMISSION DATE: 01/15/2017 DISCHARGE DATE: ABBREVIATED INTERIM DISCHARGE SUMMARY DATE OF THE TRANSFER TO THE UNIT: 01/17/2017. DATE OF TRANSFER BACK TO THE FLOOR: 01/19/2017. REASON FOR TRANSFER TO THE FLOOR: Postoperative left thoracoscopy with pericardial window and drainage of pericardial and pleural fluid. Only new additional diagnosis is electrolyte abnormalities, being corrected. CONSULTANTS: Cardiothoracic Surgery who continues to follow the patient. PROCEDURE: The patient underwent left thoracoscopy with drainage of left pleural effusion and pericardial window with pericardial sampling. Chest tube remains in place. MEDICATIONS: Reviewed. HOSPITAL COURSE: The patient was transferred to the intensive care unit on 01/17/2017 following her thoracoscopy and pericardial window. The patient remained intubated until 01/18/2017, at which time, she was extubated without event. The patient is currently on room air. She continued to have a left chest tube in place which continues to drain fluid. Fluid was sent for cytology and cultures with no malignant cells noted, with cultures either negative or pending at this time. AFB smear was negative. The patient would receive bronchodilator medications with EzPAP and flutter valve in an attempt to help clear secretions. She was otherwise stable. She had low magnesium, phosphorus, and potassium, all which were replaced. She remained on her medications that were at the time of transfer down from the Hospitalist Service. The patient will be transferred back to [address] [place] [address] with the hospitalist to resume primary care. JASPREET/FRANDY Shelby Hoyos IV, M.D. / [id number] CC: Maggi Alexis M.D.
--- NOTE | ~2017-01-15 | CN ---
Consultation Report [facility] [address] [place]. [address] NAME: ARACELIS PARIKH : 32 STATUS : ADM IN [facility]#: [id number] AGE: 86 ADM/REG DATE : 01/15/17 MR#: [id number] REPORT SERV DATE: 01/16/17 DICTATED BY: SHELBY HO DATE: 01/16/17 REPORT STATUS : Draft TRANSCRIBED BY: MODL DATE: 01/16/17 CONSULT REPORT DATE OF CONSULTATION: 01/16/2017 REASON FOR CONSULTATION: Pleural effusions and pericardial effusion. HISTORY OF PRESENT ILLNESS: This is a pleasant 86-year-old chronically debilitated female with a history of paraplegia thought to be secondary to spinal cord infarct. She also has a history of pyelonephritis with frequent UTIs, suprapubic catheter as well as history of DVTs with IVC filter on Coumadin. She presented to the hospital yesterday with shortness of breath. She eventually had a CT scan of her abdomen due to abdominal distention, which showed a circumferential pericardial effusion, bilateral pleural effusions. Echocardiogram confirmed pericardial effusion with ejection fraction around 40% to 45%. The patient has been on Coumadin with INR this morning of 2.7. Cardiothoracic Surgery was asked to evaluate for possible pericardial window and thoracoscopy. Currently, the patient is lying in bed with no complaints. She denies any shortness of breath or chest discomfort at rest. I spoke with her grandson, who is at the bedside and also her son, Edgar who is her power of insurance attorney. The patient is a DNR. 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 SOCIAL HISTORY: The patient lives at home with her grandson and his . She is chronically bedridden, but is able to get into her motorized wheelchair. She denies any history of alcohol abuse, tobacco abuse, or use of illicit drugs. FAMILY HISTORY: Noncontributory to any cardiovascular disease. PAST SURGICAL HISTORY: As above. REVIEW OF SYSTEMS: 10-point review of systems was obtained and is negative other than HPI. PHYSICAL EXAMINATION: VITAL SIGNS: From today, temperature 98.9, heart rate 82, blood pressure 117/53, respiratory rate 18, O2 saturation 98% on 2 L. GENERAL: Pleasant, ill-appearing elderly female. NEUROLOGIC: Alert and oriented x3. Normal speech. The patient is bed-bound and paraplegic, so gait was not assessed. Strength of upper extremities is equal 2+ bilaterally. HEENT: Head normocephalic and atraumatic. Sclerae clear. Mucous membranes moist. Pupils are equal, round, reactive to light and accommodation. Nose midline with no abnormalities. Consultation Report [address]. [address] NAME: ARACELIS PARIKH : 32 STATUS : ADM IN PAT#: [id number] AGE: 86 ADM/REG DATE : 01/15/17 MR#: [id number] REPORT SERV DATE: 01/16/17 DICTATED BY: SHELBY HO DATE: 01/16/17 REPORT STATUS : Draft TRANSCRIBED BY: FRANDY DATE: 01/16/17 Fair dentition overall. NECK: Supple with thyromegaly or lymphadenopathy. CARDIAC: S1, S2 with no murmurs, rubs, or gallops. Regular rate and rhythm. Carotids on auscultation with no obvious bruits. LUNGS: Clear to auscultation bilaterally with diminished bases bilaterally. ABDOMEN: Soft, obese, nontender with active bowel sounds. EXTREMITIES: Free of cyanosis, clubbing, or edema. LABORATORY DATA: White blood cell count 6.9, hemoglobin 8.8, hematocrit 29.1, platelets 361. Sodium 139, potassium 4.6, chloride 105, bicarbonate 29, BUN 24, creatinine 0.8, glucose 155. INR 2.7. ASSESSMENT AND PLAN: This is a pleasant chronically debilitated 86-year-old female with a history of paraplegia secondary to questionable spinal infarct. She also has a neurogenic bladder requiring suprapubic catheterization. She has a history of deep venous thrombosis with IVC filter. Chronically on Coumadin with INR of 2.7 today. She was admitted yesterday with shortness of breath. Upon CT scan of her abdomen and pelvis showed that she had bilateral pleural effusions and a circumferential pericardial effusion with low normal ejection fraction around 40% to 45%. The patient will need to undergo left video-assisted thoracoscopy with drainage of her pleural effusion as well as a pericardial window and QUINTIN. I discussed this with the patient and she is agreeable to proceed with surgery. I discussed the plan of care with her son, Edgar who is the power of insurance attorney and he is agreeable to have her undergo this surgery. The patient is a DNR. As for now, we will give her 1 mg of vitamin K, and planned procedure for tomorrow morning. Thank you for the consultation. FINA/FRANDY Shelby Ho NP / [id number] CC: Maggi Alexis M.D.
--- NOTE | ~2017-01-15 | HP ---
History And Physical [place] [id number] [facility] [place]. [address] NAME: ARACELIS ACOSTA : 32 STATUS : ADM IN [facility]#: [id number] AGE: 86 ADM/REG DATE : 01/15/17 MR#: [id number] REPORT SERV DATE: 01/15/17 DICTATED BY: ADONIS MONDRAGON DATE: 01/15/17 REPORT STATUS : Draft TRANSCRIBED BY: MODL DATE: 01/15/17 DATE OF ADMISSION: 01/15/2017 POINT OF ENTRY: [facility] Emergency Department. PRIMARY UROLOGIST: Danie Quezada M.D. CHIEF COMPLAINT: Shortness of breath, abdominal pain, and bloating and distention. HISTORY OF PRESENT ILLNESS: Ms. Acosta is an 86-year-old female with a history of paraplegia secondary to presumed spinal cord infarction with resulting neurogenic bladder requiring suprapubic catheter placement as well as recurrent urinary tract infections, who presents to the emergency room today with multiple complaints including shortness of breath, abdominal pain, bloating, and distention. The patient states that she has noted for the past few days worsening abdominal bloating and distention as well as associated pain. Home health came out to evaluate the patient today and felt that the patient's abdomen was very hard and wanted her further evaluated. The patient also reports some shortness of breath over the past day or two, but denies any recent fevers, night sweats, chills, chest pain, palpitations, cough, sputum production, or wheezing. The patient does report some moderate decrease in the amount of stool coming out of her ostomy, but otherwise has no other complaints. Initial evaluation in the emergency department was notable for labs that were unremarkable. Urinalysis is positive for recurrent urinary tract infection. Chest x-ray was clear. CT of the abdomen and pelvis showed a moderate to large pericardial effusion of 2.6 cm as well as some moderate bilateral pleural effusions and mild right-sided hydronephrosis with some mild perinephric stranding concerning for possible recent passed stone versus infectious etiology. The patient was subsequently admitted to the Hospitalist Service for further evaluation and management. REVIEW OF SYSTEMS: Comprehensive review of system otherwise negative unless listed in history of present illness. PAST MEDICAL HISTORY: 1. Paraplegia secondary to spinal cord infarction. 2. Neurogenic bladder with suprapubic catheter. 3. Recurrent urinary tract infections. 4. Nephrolithiasis. 5. History of DVT with IVC filter. 6. Insulin-dependent diabetes mellitus type 2. 7. Hypertension. 8. Hyperlipidemia. History And Physical [address] [address] NAME: ARACELIS ACOSTA : 32 STATUS : ADM IN PAT#: [id number] AGE: 86 ADM/REG DATE : 01/15/17 MR#: [id number] REPORT SERV DATE: 01/15/17 DICTATED BY: ADONIS MONDRAGON DATE: 01/15/17 REPORT STATUS : Draft TRANSCRIBED BY: FRANDY DATE: 01/15/17 9. GERD. 10.Cataracts and glaucoma. SURGICAL HISTORY: 1. IVC filter insertion. 2. Abdominal hysterectomy. 3. Colostomy. 4. Spine Surgery. ALLERGIES: NO KNOWN DRUG ALLERGIES. HOME MEDICATIONS: Pending at the time of dictation. SOCIAL HISTORY: Denies any tobacco, alcohol, or illicits. FAMILY MEDICAL HISTORY: Mother was of old age. Father with brain cancer. Siblings with stroke. LABS AND IMAGIN. White count is 8.1, hemoglobin 9.2, hematocrit 29.4, and platelet count 251. 2. Sodium is 139, potassium 4.0, chloride 108, carbon dioxide 28, BUN 23, creatinine 0.51, glucose is 125, calcium is 8.8, protein 6.6, albumin is 2.9, bilirubin 0.4, ALT is 13, AST is 13, alkaline phosphatase is 61. 3. Lipase is 64. 4. Urinalysis: Spec gravity is 1.017 turbid, large leukocyte esterase with 9 red blood cells with greater than 182 white blood cells per high-powered field with 24 epithelial cells, but many bacteria. 5. Chest x-ray per my review shows cardiomegaly as well as mild bilateral pleural effusions, otherwise no infiltrate or consolidation. 6. EKG per my review shows normal sinus rhythm with some diffuse T-wave flattening, but otherwise no evidence of any acute ischemia or infarction. 7. CT scan of the abdomen and pelvis shows swowtfic-[id number] pericardial effusion as well as moderate bilateral pleural effusions as well as mild right-sided hydronephrosis with mild perinephric stranding concerning for recent passed stone versus infection. PHYSICAL EXAMINATION: VITAL SIGNS: Temperature is 97.7 degrees Fahrenheit, pulse is 89, respirations 15, saturating 97% on room air, blood pressure 97/55. On recheck, it is now 94/56. GENERAL: The patient is awake, alert, in no acute distress, resting comfortably. She is a chronically ill-appearing, elderly female. HEENT: Atraumatic, normocephalic. Moist mucous membranes. Pupils are equal, round, reactive to light and accommodation. Extraocular eye movements intact. No scleral icterus. NECK: No jugular venous distention. No carotid bruits. CARDIAC: Regular rate and rhythm. No murmurs or gallops. Normal S1, S2. LUNGS: Clear to auscultation bilaterally except for decreased breath sounds in the bases. No wheezes or rhonchi. ABDOMEN: Soft, nontender. Hypoactive bowel sounds throughout. It is mildly tympanic to History And Physical [address] [address] NAME: ARACELIS ACOSTA : 32 STATUS : ADM IN [facility]#: [id number] AGE: 86 ADM/REG DATE : 01/15/17 MR#: [id number] REPORT SERV DATE: 01/15/17 DICTATED BY: ADONIS MONDRAGON DATE: 01/15/17 REPORT STATUS : Draft TRANSCRIBED BY: FRANDY DATE: 01/15/17 percussion. Has a colostomy bag in place in the left lower quadrant. EXTREMITIES: Lower extremities are warm and perfused. No cyanosis or clubbing. Does have chronic stasis changes of the bilateral lower extremities. SKIN: Warm and dry. PSYCH: Affect appropriate. NEURO: Alert and oriented x3. Cranial nerves 2 through 12 are grossly intact. Speech is normal. Gait is not assessed. ASSESSMENT AND PLAN: Ms. Acosta is an 86-year-old female who presents with complaints of shortness of breath, abdominal pain, bloating, and distention and found to have evidence of recurrent urinary tract infection as well as a pericardial effusion. PROBLEM LIST: 1. Pericardial effusion. 2. Pleural effusions. 3. Recurrent urinary tract infections. 4. Pyelonephritis. 5. Paraplegia. PLAN: 1. UTI and pyelonephritis. We will place the patient on IV antibiotics as well as follow up urine cultures. Recent culture data shows ESBL Klebsiella pneumonia as well as Pseudomonas. We will treat with IV Merrem as well as IV Levaquin to cover both potential bugs. 2. Pericardial effusion. We will check an echocardiogram to better assess degree of pericardial effusion and whether or not it is creating any hemodynamic compromise. 3. Pleural effusions. Checking a BNP level. The patient does not appear grossly volume overloaded on exam. 4. Abdominal bloating and distention. Suspect this is likely due to underlying urinary tract infection as well as evidence of moderate fecal stasis on CT scan. We will place her on some p.r.n. MiraLAX for assessment. 5. DVT prophylaxis. Lovenox subcu. CODE STATUS: The patient wishes to be full code. JCB/MODL Adonis Mondragon MD / [id number] CC: Maggi Robles M.D.
--- NOTE | ~2017-01-15 | CN ---
Consultation Report [address] [place]. [address] NAME: ARACELIS ACOSTA : 32 STATUS : ADM IN PAT#: [id number] AGE: 86 ADM/REG DATE : 01/15/17 MR#: [id number] REPORT SERV DATE: 01/15/17 DICTATED BY: LUIS EDUARDO GUTIERREZ DATE: 01/15/17 REPORT STATUS : Draft TRANSCRIBED BY: MODFredy DATE: 01/15/17 CONSULTATION DATE OF CONSULTATION: 01/15/2017 REASON FOR CONSULTATION: Pericardial effusion. HISTORY OF PRESENT ILLNESS: Ms. Acosta is an 86-year-old female with a history of paraplegia secondary to spinal infarction (2007), neurogenic bladder status post suprapubic catheter with recurrent UTIs, DVT status post IVC filter, diabetes, hypertension and hyperlipidemia, who was admitted today with abdominal pain, found to have pyelonephritis, bilateral pleural effusions and most recently a large circumferential pericardial effusion on echocardiogram. A latter diagnosis prompted consultation today for further evaluation and care. In speaking with her, she denies having any overt chest pains or pressures. Her primary complaint is abdominal pains, however, she also notes that she has been significantly dyspneic lately. She is vague about the time frame of her dyspnea, however, states that it has been at least several weeks to months. She otherwise has no specific complaints today. PAST MEDICAL HISTORY: As above. ALLERGIES: NONE. SOCIAL HISTORY: The patient lives at home and has support from both home health as well as family. She is bedridden. She denies drinking alcohol, smoking, or doing drugs. FAMILY HISTORY: Noncontributory for premature cardiovascular disease. REVIEW OF SYSTEMS: As above, all systems otherwise negative. HOME MEDICATIONS: 1. Tylenol. 2. Baclofen. 3. Alphagan. 4. Zyrtec. 5. TriCor. 6. Iron. 7. Levemir. 8. Humulin. 9. Magnesium. 10.Multivitamin. 11.Zofran. 12.Zocor. Consultation Report [place] [address] [place]. [address] NAME: ARACELIS ACOSTA : 32 STATUS : ADM IN PAT#: [id number] AGE: 86 ADM/REG DATE : 01/15/17 MR#: [id number] REPORT SERV DATE: 01/15/17 DICTATED BY: LUIS EDUARDO GUTIERREZ DATE: 01/15/17 REPORT STATUS : Draft TRANSCRIBED BY: FRANDY DATE: 01/15/17 13.Cranberry vitamin. 14.Coumadin. PHYSICAL EXAMINATION: VITAL SIGNS: Blood pressure 119/58, pulse 89, temperature 97.9. GENERAL: Age appropriate, in no acute distress, conversant. NEURO: Awake, alert and oriented x3; no focal deficits, appropriate mood. HEENT: Moist mucous membranes, anicteric sclerae, no nasal discharge. NECK: No JVD, no carotid bruit. LUNGS: Gdyl-jz-cyflgokz dyspnea at rest and with talking, diminished breath sounds bilateral lower to mid lung stallings. No wheezes or rhonchi. CV: Regular rate and rhythm. Distant heart sounds. No murmurs, rubs, or gallops. ABD: Soft, nontender, nondistended, no rebound or guarding. EXT: Paraplegic. 1 to 2+ right lower extremity edema. Trace left lower extremity edema. Otherwise, 1+ pulses throughout. SKIN: Warm, dry and intact; no rash. PERTINENT TESTS FINDINGS: Potassium 4.0, creatinine 0.51, hemoglobin 9.2. Echocardiogram: EF 40-45%, normal RV function. Large size circumferential pericardial effusion with intrapericardial septations as well as organized debris along the RV free wall. 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 Large left-sided pleural effusion is noted on the echocardiogram as well. EKG with sinus rhythm, sinus arrhythmia, normal mean QRS axis, nonspecific T-wave flattening. No definitive ischemic changes. IMPRESSION AND PLAN: Ms. Acosta is an 86-year-old female with a history of paraplegia, neurogenic bladder, and recurrent urinary tract infections, who presents with recurrent urinary tract infections/pyelonephritis, also now found to have bilateral pleural effusions and a large circumferential pericardial effusion without lacey tamponade at this time. Given that she has largely preserved ventricular function without RV diastolic collapse or significant mitral inflow variation, I suspect that her pericardial effusion is likely subacute in nature. Nevertheless, it is likely that this will become hemodynamically significant if not therapeutically drained. Therefore, I will consult cardiac surgery to evaluate her for pericardial drainage. In addition, I recommend pleural drainage with thoracentesis per primary service/Pulmonary. I would not diurese her at this time given her pericardial effusion. Otherwise, continue therapy for her pyelonephritis/UTI. VR/MODL Luis Eduardo Gutierrez MD / [id number] Consultation Report [address] [address] NAME: ARACELIS ACOSTA : 32 STATUS : ADM IN PAT#: [id number] AGE: 86 ADM/REG DATE : 01/15/17 MR#: [id number] REPORT SERV DATE: 01/15/17 DICTATED BY: LUIS EDUARDO GUTIERREZ DATE: 01/15/17 REPORT STATUS : Draft TRANSCRIBED BY: FRANDY DATE: 01/15/17 CC: Maggi Alexis M.D.
--- NOTE | ~2017-01-15 | DS ---
Discharge Summary [facility] [address] [place]. [address] NAME: ARACELIS PARIKH : 32 STATUS : ADM IN [facility]#: [id number] AGE: 86 ADM/REG DATE : 01/15/17 MR#: [id number] REPORT SERV DATE: 01/24/17 DICTATED BY: ESAU BAIN DATE: 01/24/17 REPORT STATUS : Draft TRANSCRIBED BY: FRANDY DATE: 01/24/17 ADMISSION DATE: 01/15/2017 DISCHARGE DATE: 01/24/2017 FINAL HOSPITAL DIAGNOSES: 1. Pleural and pericardial effusion, status post thoracoscopy with pericardial window and drainage of pericardial and pleural fluid status post chest tube removal. 2. Chronic paraplegia with chronic Meraz catheter. 3. Diabetes mellitus. 4. UTI resolved. 5. History of DVT. Coumadin restarted. History of IVC filter placement. 6. Hypertension. 7. Hyperlipidemia. CONSULTATIONS: To Dr. Hoyos; Dr. Khan; and Dr. Hoyos. Those are Cardiology, Cardiothoracic Surgery, and Critical Care. PROCEDURES: 1. Thoracoscopy and pericardial window. 2. Echocardiogram done on the showing EF of 40 to 45%. Normal right ventricular chamber size and systolic function. No significant valvular regurgitation or stenosis. Large circumferential pericardial effusion with intrapericardial septations as well as organized debris along the RV free wall noted without significant hemodynamic compromise. No evidence of RV diastolic collapse or significant mitral inflow variation. Large left-sided pleural effusion. 3. CT of the abdomen and pelvis done on the showing moderate to large pleural effusions; moderate to large pericardial effusion; atelectasis; evidence of fairly successful reduction of a large amount of stone in the right kidney. There is still some small amounts of residual stone and the uroepithelium appears thickened, probably secondary to chronic long-standing inflammation. CURRENT PHYSICAL FINDINGS AND HISTORY OF PRESENT ILLNESS: Please see initial dictated H and P by Dr. Lund on the as well as interim summary by Dr. Hoyos on the . This dictation will apple picking supervisor from that point. The patient was basically admitted on the with shortness of breath, abdominal pain, and was found to have pericardial and pleural effusion. Cardiology, Cardiothoracic Surgery were consulted. The patient went to the ICU postop and then was transferred to the floor on the . In the interim, she was being treated for a UTI and post procedure, Cardiology had recommended diuresis which was started initially IV and then p.o. which the patient tolerated well after transfer out. Cardiothoracic continued to follow. Cardiology signed off. Serial chest x-rays were done and IV diuresis was done. Dr. De La Cruz discontinued her Merrem. On the , she did receive full treatment for her UTI which was a Klebsiella pneumonia and Pseudomonas mendocina. Serial labs were followed and electrolytes replaced as needed. I assumed the patient's care on the . She was not back on her Coumadin at that point. TEDs and SCDs were started. Cardiothoracic continued diuresis with IV Lasix daily which she tolerated well. On the , her chest tube was removed. Followup chest x-ray showed no significant pneumothorax. Cardiothoracic Surgery Discharge Summary [address] [address] NAME: ARACELIS PARIKH : 32 STATUS : ADM IN [facility]#: [id number] AGE: 86 ADM/REG DATE : 01/15/17 MR#: [id number] REPORT SERV DATE: 01/24/17 DICTATED BY: ESAU BAIN DATE: 01/24/17 REPORT STATUS : Draft TRANSCRIBED BY: FRANDY DATE: 01/24/17 okayed her discharge with outpatient followup. The patient was comfortable with this and she had restarted her Coumadin. DISPOSITION: She is discharged home. MEDICATIONS: 1. Vitamin C a 1000 twice a day. 2. Baclofen 10 t.i.d. 3. Dulcolax suppository p.r.n. 4. Alphagan eyedrops 0.1% t.i.d. 5. Tricor 45 b.i.d. 6. Iron 325 b.i.d. 7. She was previously on Levemir 30 at bedtime. She has been getting sliding scale here after they restarted 10 this evening, titrating up by 5 to 10 units as her blood sugars needed and after they check her 2 a.m. sugar today. She will continue her sliding scale which is averaging 3 to 5 units per dose. 8. Zyrtec 10. 9. Magnesium oxide 400. 10.Multivitamin 1 per day. 11.Prilosec 20 one per day. 12.MiraLAX 1 scoop per day. 13.Zocor 40 at bedtime. 14.She will restart her Coumadin 2 mg Saturday, Saturday, Saturday; 3 mg Saturday, , Saturday, and Saturday. She was scheduled to get a 4 mg dose today. 15.Zinc 220. 16.Proventil inhaler. 17.Cranberry with vitamin C. 18.Tylenol p.r.n. 19.Zofran p.r.n. We will recommend she follow up with cardiothoracic as instructed by them post hospital followup with her PCP in 10 to 14 days and an INR check in 3 to 5 days. DICTATED BY: Maggi Garcia/FRANDY Esau Bain M.D. / [id number] CC: Maggi Garcia M.D.
[2017-01-15 03:22] LABS: BASOPHILS 0.2 %; BASOPHILS ABSOLUTE 0.02 10/3/uL (0.0-0.16); EOSINOPHILS 0.9 %; EOSINOPHILS ABSOLUTE 0.07 10/3/uL (0.0-0.53); HEMATOCRIT 29.4 % (36.0-48.0); HEMOGLOBIN 9.2 g/dL (12.0-16.0); IMMATURE GRANULOCYTES 0.5 %; IMMATURE GRANULOCYTES ABSOLUTE 0.04 10/3/uL (0.0-0.11); LYMPHOCYTES 21.8 %; LYMPHOCYTES ABSOLUTE 1.76 10/3/uL (0.67-4.30); MEAN CORPUS HGB CONC 31.3 g/dL (32.0-36.0); MEAN CORPUSCULAR HEMOGLOB 27.5 pg (26.0-34.0); MEAN CORPUSCULAR VOLUME 87.8 fL (80-100); MONOCYTES 6.2 %; NEUTROPHILS 70.4 %; PLATELET COUNT 351 10/3/uL (150-400); RBC DISTRIBUTION WIDTH 16.2 % (12.0-16.0); RED CELL COUNT 3.35 10/6/uL (4.0-5.6); WHITE BLOOD CELLS 8.1 10/3/uL (4.5-10.5)
[2017-01-15 03:24] LABS: MANUAL DIFF NO %
[2017-01-15 03:34] LABS: ASCORBIC ACID (UR NOT ORDER) 40 (NEG); BILIRUBIN, URINE NEGATIVE (NEG); ER URINALYSIS TAT 0 Hrs 00 Mins; KETONE, URINE NEGATIVE (NEG); LEUKOCYTE ESTERASE(NOT OR LARGE (NEG); NITRITE (URINE) NEG (NEG); WBC (NOT ORDERED) (RFLEX) > 182 (0-5)
[2017-01-15 03:38] LABS: A/G RATIO 0.8 (0.7-1.9); ALBUMIN 2.9 G/DL (3.5-5.0); CALCIUM, SERUM 8.8 MG/DL (8.5-10.4); CHLORIDE, SERUM 108 MMOL/L (96-112); CO2 (CARBON DIOXIDE) 28 MMOL/L (24-34); CREATININE 0.51 MG/DL (0.55-1.02); GFR AFRICAN AMERICAN 102 ML/MIN (>=60); GFR NON AFRICAN AMERICAN 88 ML/MIN (>=60); GLOBULIN 3.7 G/DL (2.5-4.1); SGOT(AST) 13 U/L (5-40); SGPT(ALT) 13 U/L (5-65); SODIUM, SERUM 139 MMOL/L (135-148); TOTAL BILIRUBIN 0.4 MG/DL (0-1.2); TOTAL PROTEIN 6.6 G/DL (6.0-8.5)
[2017-01-15 03:40] LABS: ALKALINE PHOSPHATASE 61 U/L (45-117); BUN (BLOOD UREA NITROGEN) 23 MG/DL (6-23); GLUCOSE, SERUM 125 MG/DL (60-99)
[2017-01-15 08:21] LABS: PROCALCITONIN <0.05 ng/mL (<0.5)
[2017-01-15 14:05] LABS: FREE T4 2.38 NG/DL (0.76-1.46)
[2017-01-15 14:11] LABS: INTERNATIONAL NORMAL RATI 2.7 UNITS (-); PROTIME (NOT ORD) 28.8 SEC (12.0-14.5)
[2017-01-16 03:32] LABS: BASOPHILS 0.3 %; BASOPHILS ABSOLUTE 0.02 10/3/uL (0.0-0.16); EOSINOPHILS 0.7 %; EOSINOPHILS ABSOLUTE 0.05 10/3/uL (0.0-0.53); HEMATOCRIT 29.1 % (36.0-48.0); HEMOGLOBIN 8.8 g/dL (12.0-16.0); IMMATURE GRANULOCYTES 0.6 %; IMMATURE GRANULOCYTES ABSOLUTE 0.04 10/3/uL (0.0-0.11); LYMPHOCYTES 17.2 %; LYMPHOCYTES ABSOLUTE 1.19 10/3/uL (0.67-4.30); MANUAL DIFF NO %; MEAN CORPUS HGB CONC 30.2 g/dL (32.0-36.0); MEAN CORPUSCULAR HEMOGLOB 26.7 pg (26.0-34.0); MEAN CORPUSCULAR VOLUME 88.4 fL (80-100); MEAN PLATELET VOLUME 9.1 fL (9.2-13.0); MONOCYTES 6.7 %; MONOCYTES ABSOLUTE 0.46 10/3/uL (0.21-1.20); NEUTROPHILS 74.5 %; NEUTROPHILS ABSOLUTE 5.15 10/3/uL (2.02-8.40); PLATELET COUNT 361 10/3/uL (150-400); RBC DISTRIBUTION WIDTH 16.2 % (12.0-16.0); RED CELL COUNT 3.29 10/6/uL (4.0-5.6); WHITE BLOOD CELLS 6.9 10/3/uL (4.5-10.5)
[2017-01-16 03:40] LABS: INTERNATIONAL NORMAL RATI 2.7 UNITS (-); PROTIME (NOT ORD) 28.4 SEC (12.0-14.5)
[2017-01-16 03:48] LABS: A/G RATIO 0.8 (0.7-1.9); ALBUMIN 3.2 G/DL (3.5-5.0); ALKALINE PHOSPHATASE 62 U/L (45-117); BUN (BLOOD UREA NITROGEN) 24 MG/DL (6-23); CALCIUM, SERUM 9.1 MG/DL (8.5-10.4); CHLORIDE, SERUM 105 MMOL/L (96-112); CO2 (CARBON DIOXIDE) 29 MMOL/L (24-34); CREATININE 0.78 MG/DL (0.55-1.02); GFR AFRICAN AMERICAN 80 ML/MIN (>=60); GFR NON AFRICAN AMERICAN 69 ML/MIN (>=60); GLUCOSE, SERUM 155 MG/DL (60-99); POTASSIUM, SERUM 4.6 MMOL/L (3.5-5.3); SGOT(AST) 15 U/L (5-40); SGPT(ALT) 13 U/L (5-65); SODIUM, SERUM 137 MMOL/L (135-148); TOTAL BILIRUBIN 0.4 MG/DL (0-1.2); TOTAL PROTEIN 7.2 G/DL (6.0-8.5)
[2017-01-16 15:07] LABS: HEMATOCRIT 27.9 % (36.0-48.0); HEMOGLOBIN 8.4 g/dL (12.0-16.0)
[2017-01-16 19:44] LABS: INTERNATIONAL NORMAL RATI 1.6 UNITS (-)
[2017-01-17 05:00] LABS: BASOPHILS 0.3 %; BASOPHILS ABSOLUTE 0.02 10/3/uL (0.0-0.16); EOSINOPHILS 0.7 %; EOSINOPHILS ABSOLUTE 0.05 10/3/uL (0.0-0.53); HEMATOCRIT 26.7 % (36.0-48.0); HEMOGLOBIN 8.2 g/dL (12.0-16.0); IMMATURE GRANULOCYTES 0.7 %; IMMATURE GRANULOCYTES ABSOLUTE 0.05 10/3/uL (0.0-0.11); LYMPHOCYTES 19.4 %; LYMPHOCYTES ABSOLUTE 1.34 10/3/uL (0.67-4.30); MEAN CORPUS HGB CONC 30.7 g/dL (32.0-36.0); MEAN CORPUSCULAR HEMOGLOB 27.2 pg (26.0-34.0); MEAN CORPUSCULAR VOLUME 88.7 fL (80-100); MEAN PLATELET VOLUME 8.8 fL (9.2-13.0); MONOCYTES 8.4 %; MONOCYTES ABSOLUTE 0.58 10/3/uL (0.21-1.20); NEUTROPHILS 70.5 %; NEUTROPHILS ABSOLUTE 4.87 10/3/uL (2.02-8.40); PLATELET COUNT 318 10/3/uL (150-400); RED CELL COUNT 3.01 10/6/uL (4.0-5.6); WHITE BLOOD CELLS 6.9 10/3/uL (4.5-10.5)
[2017-01-17 05:02] LABS: MANUAL DIFF NO %
[2017-01-17 05:06] LABS: INTERNATIONAL NORMAL RATI 1.4 UNITS (-)
[2017-01-17 05:18] LABS: ALBUMIN 3.7 G/DL (3.5-5.0); ALKALINE PHOSPHATASE 59 U/L (45-117); CALCIUM, SERUM 9.2 MG/DL (8.5-10.4); CHLORIDE, SERUM 106 MMOL/L (96-112); CO2 (CARBON DIOXIDE) 33 MMOL/L (24-34); CREATININE 0.55 MG/DL (0.55-1.02); GFR AFRICAN AMERICAN 99 ML/MIN (>=60); GFR NON AFRICAN AMERICAN 86 ML/MIN (>=60); GLOBULIN 3.6 G/DL (2.5-4.1); PHOSPHORUS, SERUM 2.7 MG/DL (2.5-4.5); POTASSIUM, SERUM 4.2 MMOL/L (3.5-5.3); SGOT(AST) 11 U/L (5-40); SGPT(ALT) 14 U/L (5-65); SODIUM, SERUM 136 MMOL/L (135-148); TOTAL BILIRUBIN 0.5 MG/DL (0-1.2); TOTAL PROTEIN 7.3 G/DL (6.0-8.5)
[2017-01-17 05:21] LABS: BUN (BLOOD UREA NITROGEN) 19 MG/DL (6-23); GLUCOSE, SERUM 107 MG/DL (60-99)
[2017-01-17 11:36] LABS: BE (BASE EXCESS) 5.3 MEQ/L (0 +/- 2.5); CARBOXYHEMOGLOBIN 0.1 % (0-3); HCO3 (ACTUAL BICARBONATE) 29.5 MEQ/L (23-27); HEMOBLOGIN CONTENT 9.6 G/DL (12-16); INSTRUMENT SERIAL # 11843; METHEMOGLOBIN 0.5 % (0-3); MODE SIMV; OPERATOR ID 13715; PCO2 (CO2 TENSION) 41 MMHG (35-45); PO2 (O2 TENSION) 295 MMHG (79-93); SAMPLE Arterial; TIDAL VOLUME 600 ML; pH 7.47 (7.37-7.43)
[2017-01-17 12:10] LABS: HEMATOCRIT 28.4 % (36.0-48.0); HEMOGLOBIN 8.7 g/dL (12.0-16.0); PLATELET COUNT 323 10/3/uL (150-400)
[2017-01-17 12:18] LABS: INTERNATIONAL NORMAL RATI 1.5 UNITS (-); PROTIME (NOT ORD) 17.5 SEC (12.0-14.5)
[2017-01-17 12:22] LABS: BUN (BLOOD UREA NITROGEN) 17 MG/DL (6-23); CALCIUM, SERUM 9.1 MG/DL (8.5-10.4); CHLORIDE, SERUM 103 MMOL/L (96-112); CO2 (CARBON DIOXIDE) 29 MMOL/L (24-34); CREATININE 0.37 MG/DL (0.55-1.02); GFR AFRICAN AMERICAN 113 ML/MIN (>=60); GFR NON AFRICAN AMERICAN 97 ML/MIN (>=60); GLUCOSE, SERUM 148 MG/DL (60-99); POTASSIUM, SERUM 3.4 MMOL/L (3.5-5.3); SODIUM, SERUM 141 MMOL/L (135-148)
[2017-01-17 17:54] LABS: HEMATOCRIT 28.7 % (36.0-48.0)
[2017-01-17 17:58] LABS: POTASSIUM, SERUM 4.7 MMOL/L (3.5-5.3)
[2017-01-18 03:31] LABS: BASOPHILS 0.1 %; BASOPHILS ABSOLUTE 0.01 10/3/uL (0.0-0.16); EOSINOPHILS 0 %; HEMATOCRIT 26.7 % (36.0-48.0); HEMOGLOBIN 8.4 g/dL (12.0-16.0); IMMATURE GRANULOCYTES 0.4 %; IMMATURE GRANULOCYTES ABSOLUTE 0.04 10/3/uL (0.0-0.11); LYMPHOCYTES 9.7 %; LYMPHOCYTES ABSOLUTE 1.09 10/3/uL (0.67-4.30); MEAN CORPUS HGB CONC 31.5 g/dL (32.0-36.0); MEAN CORPUSCULAR HEMOGLOB 27.1 pg (26.0-34.0); MEAN CORPUSCULAR VOLUME 86.1 fL (80-100); MEAN PLATELET VOLUME 9.1 fL (9.2-13.0); MONOCYTES 5.1 %; MONOCYTES ABSOLUTE 0.57 10/3/uL (0.21-1.20); NEUTROPHILS 84.7 %; NEUTROPHILS ABSOLUTE 9.48 10/3/uL (2.02-8.40); PLATELET COUNT 281 10/3/uL (150-400); RBC DISTRIBUTION WIDTH 15.8 % (12.0-16.0)
[2017-01-18 03:33] LABS: MANUAL DIFF NO %; WHITE BLOOD CELLS 11.2 10/3/uL (4.5-10.5)
[2017-01-18 03:41] LABS: INTERNATIONAL NORMAL RATI 1.5 UNITS (-); PROTIME (NOT ORD) 17.9 SEC (12.0-14.5)
[2017-01-18 03:49] LABS: BUN (BLOOD UREA NITROGEN) 15 MG/DL (6-23); CALCIUM, SERUM 8.9 MG/DL (8.5-10.4); CHLORIDE, SERUM 105 MMOL/L (96-112); CO2 (CARBON DIOXIDE) 29 MMOL/L (24-34); CREATININE 0.43 MG/DL (0.55-1.02); GFR AFRICAN AMERICAN 107 ML/MIN (>=60); GFR NON AFRICAN AMERICAN 93 ML/MIN (>=60); POTASSIUM, SERUM 4.1 MMOL/L (3.5-5.3); SODIUM, SERUM 140 MMOL/L (135-148)
[2017-01-18 03:54] LABS: GLUCOSE, SERUM 237 MG/DL (60-99)
[2017-01-18 10:48] LABS: DEVICE NC; HCO3 (ACTUAL BICARBONATE) 25.2 MEQ/L (23-27); INSTRUMENT SERIAL # 11843; METHEMOGLOBIN 0.5 % (0-3); O2 CONTENT 12.5 VOL% (18-24); OPERATOR ID 32214; PCO2 (CO2 TENSION) 38 MMHG (35-45); PO2 (O2 TENSION) 120 MMHG (79-93); SAMPLE Arterial; pH 7.44 (7.37-7.43)
[2017-01-19 03:50] LABS: BASOPHILS 0.2 %; BASOPHILS ABSOLUTE 0.02 10/3/uL (0.0-0.16); EOSINOPHILS 0.6 %; EOSINOPHILS ABSOLUTE 0.06 10/3/uL (0.0-0.53); HEMATOCRIT 26.3 % (36.0-48.0); HEMOGLOBIN 8.2 g/dL (12.0-16.0); IMMATURE GRANULOCYTES 0.3 %; IMMATURE GRANULOCYTES ABSOLUTE 0.03 10/3/uL (0.0-0.11); LYMPHOCYTES 10.8 %; LYMPHOCYTES ABSOLUTE 1.11 10/3/uL (0.67-4.30); MEAN CORPUS HGB CONC 31.2 g/dL (32.0-36.0); MEAN CORPUSCULAR HEMOGLOB 27.1 pg (26.0-34.0); MEAN CORPUSCULAR VOLUME 86.8 fL (80-100); MEAN PLATELET VOLUME 9.3 fL (9.2-13.0); MONOCYTES 5.6 %; MONOCYTES ABSOLUTE 0.58 10/3/uL (0.21-1.20); NEUTROPHILS 82.5 %; NEUTROPHILS ABSOLUTE 8.47 10/3/uL (2.02-8.40); PLATELET COUNT 308 10/3/uL (150-400); RBC DISTRIBUTION WIDTH 16.2 % (12.0-16.0); RED CELL COUNT 3.03 10/6/uL (4.0-5.6); WHITE BLOOD CELLS 10.3 10/3/uL (4.5-10.5)
[2017-01-19 03:56] LABS: MANUAL DIFF NO %
[2017-01-19 04:12] LABS: BUN (BLOOD UREA NITROGEN) 15 MG/DL (6-23); CALCIUM, SERUM 8.6 MG/DL (8.5-10.4); CHLORIDE, SERUM 107 MMOL/L (96-112); CO2 (CARBON DIOXIDE) 28 MMOL/L (24-34); CREATININE 0.38 MG/DL (0.55-1.02); GFR AFRICAN AMERICAN 112 ML/MIN (>=60); GFR NON AFRICAN AMERICAN 97 ML/MIN (>=60); POTASSIUM, SERUM 3.6 MMOL/L (3.5-5.3); SODIUM, SERUM 141 MMOL/L (135-148)
[2017-01-19 04:14] LABS: GLUCOSE, SERUM 125 MG/DL (60-99); PHOSPHORUS, SERUM 1.7 MG/DL (2.5-4.5)
[2017-01-20 05:32] LABS: BASOPHILS 0.4 %; BASOPHILS ABSOLUTE 0.03 10/3/uL (0.0-0.16); EOSINOPHILS 2.4 %; HEMATOCRIT 27.4 % (36.0-48.0); HEMOGLOBIN 8.4 g/dL (12.0-16.0); IMMATURE GRANULOCYTES 0.2 %; IMMATURE GRANULOCYTES ABSOLUTE 0.02 10/3/uL (0.0-0.11); LYMPHOCYTES 18.5 %; LYMPHOCYTES ABSOLUTE 1.55 10/3/uL (0.67-4.30); MEAN CORPUS HGB CONC 30.7 g/dL (32.0-36.0); MEAN CORPUSCULAR HEMOGLOB 26.3 pg (26.0-34.0); MEAN CORPUSCULAR VOLUME 85.6 fL (80-100); MEAN PLATELET VOLUME 9.3 fL (9.2-13.0); MONOCYTES 7.6 %; MONOCYTES ABSOLUTE 0.64 10/3/uL (0.21-1.20); NEUTROPHILS 70.9 %; NEUTROPHILS ABSOLUTE 5.95 10/3/uL (2.02-8.40); PLATELET COUNT 321 10/3/uL (150-400); RBC DISTRIBUTION WIDTH 16.3 % (12.0-16.0); WHITE BLOOD CELLS 8.4 10/3/uL (4.5-10.5)
[2017-01-20 05:33] LABS: MANUAL DIFF NO %
[2017-01-20 06:03] LABS: BUN (BLOOD UREA NITROGEN) 13 MG/DL (6-23); CALCIUM, SERUM 8.6 MG/DL (8.5-10.4); CHLORIDE, SERUM 106 MMOL/L (96-112); CO2 (CARBON DIOXIDE) 29 MMOL/L (24-34); CREATININE 0.39 MG/DL (0.55-1.02); GFR AFRICAN AMERICAN 111 ML/MIN (>=60); GFR NON AFRICAN AMERICAN 96 ML/MIN (>=60); GLUCOSE, SERUM 120 MG/DL (60-99); POTASSIUM, SERUM 4.3 MMOL/L (3.5-5.3); SODIUM, SERUM 141 MMOL/L (135-148)
[2017-01-20 06:04] LABS: PHOSPHORUS, SERUM 2.7 MG/DL (2.5-4.5)
[2017-01-21 10:47] LABS: INTERNATIONAL NORMAL RATI 1.3 UNITS (-); PARTIAL THROMBO TIME 30.6 SEC (22.5-37.2); PROTIME (NOT ORD) 16.2 SEC (12.0-14.5)
[2017-01-22 04:17] LABS: BASOPHILS 0.4 %; BASOPHILS ABSOLUTE 0.03 10/3/uL (0.0-0.16); EOSINOPHILS 2.4 %; HEMATOCRIT 27.1 % (36.0-48.0); HEMOGLOBIN 8.6 g/dL (12.0-16.0); IMMATURE GRANULOCYTES 0.2 %; IMMATURE GRANULOCYTES ABSOLUTE 0.02 10/3/uL (0.0-0.11); LYMPHOCYTES 26.2 %; LYMPHOCYTES ABSOLUTE 2.14 10/3/uL (0.67-4.30); MEAN CORPUS HGB CONC 31.7 g/dL (32.0-36.0); MONOCYTES 5.1 %; MONOCYTES ABSOLUTE 0.42 10/3/uL (0.21-1.20); NEUTROPHILS 65.7 %; NEUTROPHILS ABSOLUTE 5.37 10/3/uL (2.02-8.40); PLATELET COUNT 325 10/3/uL (150-400); RBC DISTRIBUTION WIDTH 16.2 % (12.0-16.0); RED CELL COUNT 3.19 10/6/uL (4.0-5.6); WHITE BLOOD CELLS 8.2 10/3/uL (4.5-10.5)
[2017-01-22 04:18] LABS: MANUAL DIFF NO %
[2017-01-22 04:33] LABS: BUN (BLOOD UREA NITROGEN) 14 MG/DL (6-23); CHLORIDE, SERUM 105 MMOL/L (96-112); CO2 (CARBON DIOXIDE) 28 MMOL/L (24-34); CREATININE 0.33 MG/DL (0.55-1.02); GFR AFRICAN AMERICAN 117 ML/MIN (>=60); GFR NON AFRICAN AMERICAN 101 ML/MIN (>=60); POTASSIUM, SERUM 4.1 MMOL/L (3.5-5.3); SODIUM, SERUM 142 MMOL/L (135-148)
[2017-01-22 04:35] LABS: GLUCOSE, SERUM 65 MG/DL (60-99)
[2017-01-23 05:40] LABS: BASOPHILS 0.6 %; BASOPHILS ABSOLUTE 0.04 10/3/uL (0.0-0.16); EOSINOPHILS 4.4 %; EOSINOPHILS ABSOLUTE 0.32 10/3/uL (0.0-0.53); HEMATOCRIT 28.7 % (36.0-48.0); HEMOGLOBIN 8.9 g/dL (12.0-16.0); IMMATURE GRANULOCYTES 0.3 %; IMMATURE GRANULOCYTES ABSOLUTE 0.02 10/3/uL (0.0-0.11); LYMPHOCYTES 29.2 %; LYMPHOCYTES ABSOLUTE 2.11 10/3/uL (0.67-4.30); MANUAL DIFF NO %; MEAN CORPUSCULAR HEMOGLOB 26.4 pg (26.0-34.0); MEAN CORPUSCULAR VOLUME 85.2 fL (80-100); MEAN PLATELET VOLUME 9.3 fL (9.2-13.0); MONOCYTES 6.5 %; MONOCYTES ABSOLUTE 0.47 10/3/uL (0.21-1.20); NEUTROPHILS ABSOLUTE 4.26 10/3/uL (2.02-8.40); PLATELET COUNT 329 10/3/uL (150-400); RBC DISTRIBUTION WIDTH 16.5 % (12.0-16.0); RED CELL COUNT 3.37 10/6/uL (4.0-5.6); WHITE BLOOD CELLS 7.2 10/3/uL (4.5-10.5)
[2017-01-23 05:52] LABS: BUN (BLOOD UREA NITROGEN) 20 MG/DL (6-23); CALCIUM, SERUM 9.6 MG/DL (8.5-10.4); CHLORIDE, SERUM 101 MMOL/L (96-112); CO2 (CARBON DIOXIDE) 26 MMOL/L (24-34); CREATININE 0.51 MG/DL (0.55-1.02); GFR AFRICAN AMERICAN 102 ML/MIN (>=60); GFR NON AFRICAN AMERICAN 88 ML/MIN (>=60); GLUCOSE, SERUM 186 MG/DL (60-99); POTASSIUM, SERUM 3.6 MMOL/L (3.5-5.3); SODIUM, SERUM 138 MMOL/L (135-148)
[2017-01-24 05:35] LABS: BUN (BLOOD UREA NITROGEN) 18 MG/DL (6-23); CALCIUM, SERUM 8.9 MG/DL (8.5-10.4); CHLORIDE, SERUM 105 MMOL/L (96-112); CO2 (CARBON DIOXIDE) 28 MMOL/L (24-34); GFR AFRICAN AMERICAN 110 ML/MIN (>=60); GFR NON AFRICAN AMERICAN 95 ML/MIN (>=60); GLUCOSE, SERUM 154 MG/DL (60-99); POTASSIUM, SERUM 4.1 MMOL/L (3.5-5.3); SODIUM, SERUM 141 MMOL/L (135-148)
== END 2017-01-24 18:20 | disposition home or self-care (01) | DRG 163 ==
LOC: ER 01:46 → 5NO 06:18 → CVICU 01-17 10:50 → 5NO 01-19 15:39
PROVIDERS: Emergency Medicine; Internal Medicine; Internal Medicine Critical Care Medicine; Nurse Practitioner Family; Thoracic Surgery (Cardiothoracic Vascular Surgery)
PROC: 0B9P4ZX Drainage of Left Pleura, Percutaneous Endoscopic Approach, Diagnostic (ICD-10-PCS; 2017-01-17)
PROC: 0W9D4ZZ Drainage of Pericardial Cavity, Percutaneous Endoscopic Approach (ICD-10-PCS; principal; 2017-01-17 09:15)
PROC: 02BN4ZX Excision of Pericardium, Percutaneous Endoscopic Approach, Diagnostic (ICD-10-PCS; 2017-01-17 09:15)
PROC: 0W993ZZ Drainage of Right Pleural Cavity, Percutaneous Approach (ICD-10-PCS; 2017-01-21)
DX: J90 Pleural effusion, not elsewhere classified (principal); J95.821 Acute postprocedural respiratory failure; I50.22 Chronic systolic (congestive) heart failure; I11.0 Hypertensive heart disease with heart failure; G82.20 Paraplegia, unspecified; E11.9 Type 2 diabetes mellitus without complications; B96.1 Klebsiella pneumoniae [K. pneumoniae] as the cause of diseases classified elsewhere; I31.3 Pericardial effusion (noninflammatory); N39.0 Urinary tract infection, site not specified; N31.9 Neuromuscular dysfunction of bladder, unspecified; Z87.440 Personal history of urinary (tract) infections; Z86.718 Personal history of other venous thrombosis and embolism; E78.5 Hyperlipidemia, unspecified; Z74.01 Bed confinement status; Z79.899 Other long term (current) drug therapy; Z79.01 Long term (current) use of anticoagulants; Z66 Do not resuscitate; F41.9 Anxiety disorder, unspecified
CPT/HCPCS: 31720; 32555; 36415; 71010; 71020; 74177; 80048; 80053; 80069; 81001; 82330; 82805; 82947; 82962; 83690; 83735; 83880; 84100; 84132; 84145; 84439; 84443; 85014; 85018; 85025; 85049; 85610; 85730; 86850; 86900; 86901; 87015; 87070; 87075; 87077; 87086; 87102; 87116; 87186; 87205; 88112; 88305; 93005; 93306; 94002; 94003; 94640; 94660; 94667; 94668; 94770; 99285; A9270-GY; C1751; C1769; J0690; J1956; J2185; J2250; J2370; J2405; J2710; J2795; J3010; J3475; P9047; P9059; Q9967